=== PATIENT | male | born 1950 | race Caucasian/White ===

== ENCOUNTER 2020-07-15 07:15 | Outpatient (REF) | payer OTHER, SELFPAY ==
[2020-07-15 08:07] LABS: COVID-19 Test Negative (Negative)
== END 2020-07-15 07:16 | disposition home or self-care (01) ==
LOC: HO.LAB 07:15
PROVIDERS: Visit Provider Internal Medicine
DX: Z20.828 Contact with and (suspected) exposure to other viral communicable diseases (principal)
CPT/HCPCS: 87635

== ENCOUNTER 2020-07-31 12:35 | Outpatient (REF) | payer OTHER, SELFPAY ==
[2020-07-31 13:03] LABS: COVID-19 Test Negative (Negative)
== END 2020-07-31 12:36 | disposition home or self-care (01) ==
LOC: HO.EMPCOV 12:35
PROVIDERS: Visit Provider Internal Medicine
DX: Z20.828 Contact with and (suspected) exposure to other viral communicable diseases (principal)
CPT/HCPCS: 87635; C9803

== ENCOUNTER 2020-09-15 16:12 | Outpatient (REF) | payer OTHER, SELFPAY ==
[2020-09-15 16:58] LABS: COVID-19 Test Negative (Negative)
== END 2020-09-15 16:13 | disposition home or self-care (01) ==
LOC: HO.EMPCOV 16:12
PROVIDERS: Visit Provider Internal Medicine
DX: Z20.828 Contact with and (suspected) exposure to other viral communicable diseases (principal)
CPT/HCPCS: 87635

== ENCOUNTER 2020-10-05 06:06 | Outpatient (REF) | payer OTHER, SELFPAY ==
[2020-10-05 08:10] LABS: Hematocrit 43.6 % (42-52); Hemoglobin 14.9 g/dl (14.0-18.0); Mean Corpuscular HGB Conc 34.2 g/dl (31.0-36.0); Mean Corpuscular Hemoglobin 32.5 pg (27.0-33.0); Mean Platelet Volume 10.9 fL (9.4-12.4); Platelet Count 179 X10*3/uL (160-400); Red Blood Count 4.59 X10*6/uL (4.60-5.80); Red Cell Distribution Width 12.3 % (11.0-16.0); White Blood Count 4.9 X10*3/uL (4.8-10.8)
[2020-10-05 08:53] LABS: Alanine Aminotransferase 41 U/L (0-40); Albumin Level 4.5 g/dL (3.5-5.0); Alkaline Phosphatase 58 U/L (39-117); Anion Gap 15 (12-20); Aspartate Amino Transferase 79 U/L (5-37); Bilirubin Direct 0.2 mg/dL (0.0-0.5); Bilirubin Total 0.5 mg/dL (0.0-1.0); Blood Urea Nitrogen 17 mg/dL (9-16); Calcium 9.3 mg/dL (8.4-10.2); Carbon Dioxide 25 mmol/L (22-29); Chloride 102 mmol/L (96-108); Cholesterol 254 mg/dL; Estimated Glomerular Filt Rate > 60; Glucose Random 94 mg/dL (60-115); HDL Cholesterol 64 mg/dL; LDL Cholesterol Calculated 165 mg/dl; Magnesium 2.2 mg/dL (1.6-2.6); Potassium 4.3 mmol/l (3.3-5.1); Sodium 138 mmol/L (135-145); Total Protein 7.2 g/dL (6.5-8.0); Triglycerides 129 mg/dL
[2020-10-05 08:58] LABS: Thyroid Stimulating Hormone 3.35 uIU/mL (0.32-4.0)
[2020-10-08 23:32] LABS: TS Negative Control Passed; TS Panel A 0; TS Panel B 0; TS Positive Control Passed; TSpotTB Negative (SeeBelow)
[2020-10-09 17:58] LABS: Vitamin D 25-OH, D2 <4 ng/mL; Vitamin D 25-OH, D3 16 ng/mL; Vitamin D 25-OH, Total 16 ng/mL (30-100)
== END 2020-10-05 06:07 | disposition home or self-care (01) ==
LOC: HO.LAB 06:06
PROVIDERS: Emergency Medicine Emergency Medical Services; Visit Provider Internal Medicine
DX: R53.83 Other fatigue (principal)
CPT/HCPCS: 36415; 80048; 80061; 80076; 82306; 83735; 84443; 85027; 86140; 86481

== ENCOUNTER 2020-10-24 06:03 | Outpatient (REF) | payer OTHER, SELFPAY ==
[2020-10-24 07:20] LABS: Hematocrit 43.9 % (42-52); Hemoglobin 14.9 g/dl (14.0-18.0); Mean Corpuscular HGB Conc 33.9 g/dl (31.0-36.0); Mean Corpuscular Hemoglobin 32.5 pg (27.0-33.0); Mean Corpuscular Volume 95.9 fL (80-98); Platelet Count 164 X10*3/uL (160-400); Red Blood Count 4.58 X10*6/uL (4.60-5.80); Red Cell Distribution Width 12.3 % (11.0-16.0)
[2020-10-24 07:47] LABS: Alanine Aminotransferase 28 U/L (0-40); Albumin Level 4.5 g/dL (3.5-5.0); Alkaline Phosphatase 56 U/L (39-117); Anion Gap 15 (12-20); Aspartate Amino Transferase 31 U/L (5-37); Bilirubin Direct 0.2 mg/dL (0.0-0.5); Bilirubin Total 0.5 mg/dL (0.0-1.0); Blood Urea Nitrogen 17 mg/dL (9-16); Calcium 9.3 mg/dL (8.4-10.2); Carbon Dioxide 26 mmol/L (22-29); Chloride 103 mmol/L (96-108); Cholesterol 229 mg/dL; Estimated Glomerular Filt Rate > 60; Glucose Random 98 mg/dL (60-115); HDL Cholesterol 66 mg/dL; LDL Cholesterol Calculated 137 mg/dl; Potassium 4.7 mmol/L (3.3-5.1); Sodium 139 mmol/L (135-145); Total Protein 7.1 g/dL (6.5-8.0); Triglycerides 132 mg/dL
[2020-10-28 20:57] LABS: Vitamin D 25-OH, D2 <4 ng/mL; Vitamin D 25-OH, D3 22 ng/mL; Vitamin D 25-OH, Total 22 ng/mL (30-100)
== END 2020-10-24 06:04 | disposition home or self-care (01) ==
LOC: HO.LAB 06:03
PROVIDERS: Visit Provider Internal Medicine
DX: I71.4 Abdominal aortic aneurysm, without rupture (principal); I71.2 Thoracic aortic aneurysm, without rupture; R74.8 Abnormal levels of other serum enzymes
CPT/HCPCS: 36415; 80048; 80061; 80076; 82306; 85027

== ENCOUNTER 2020-10-27 09:40 | Outpatient (REF) | payer OTHER, SELFPAY ==
--- NOTE | ~2020-10-27 | CT_ITS ---
EXAMINATION: CT ABDOMEN AND PELVIS WITHOUT CONTRAST CLINICAL INFORMATION: Abdominal aortic aneurysm. COMPARISON: Previous chest CT December 2019 TECHNIQUE: Multidetector volumetric imaging was performed from the superior aspect of the liver through the pubic symphysis. Sagittal and coronal reformatted images were obtained on the technologist's workstation. This CT examination was performed using dose optimization techniques as appropriate, variously including the following: *Automated exposure control *Adjustment of mA and/or kV according to patient size (this includes techniques or standardized protocols for targeted exams where dose is matched to indication/reason for exam; i.e. extremities or head) *Use of iterative reconstruction technique DLP: 571 mGy-cm FINDINGS: LUNG BASES: There is a peripheral or subpleural 9 mm right lower lobe nodule axial image 1 series 4. This is only partially visualized. This has small focus of calcification and feeding vessels and is again suggestive of AVM or varix. There is a 2 mm left lower lobe nodule axial image 34 series 4. There is a small right posterior diaphragmatic hernia containing fat. Chest findings are stable from chest CT December 2019. LIVER, GALLBLADDER, AND BILIARY TREE: The liver is normal in size, shape, and attenuation. No focal hepatic lesion or biliary ductal dilatation is present. The gallbladder has been removed. PANCREAS: Unremarkable. SPLEEN: Unremarkable. ADRENAL GLANDS: Unremarkable. KIDNEYS AND URETERS: There are small bilateral nonobstructing renal stones. BLADDER: Unremarkable. GASTROINTESTINAL TRACT: There is mild diverticulosis of the colon. Small and large bowel is otherwise unremarkable. The stomach is unremarkable. ABDOMINAL WALL: There is a small umbilical hernia containing fat. LYMPH NODES: Normal. VASCULAR: No aneurysm is seen. The descending thoracic aorta is tortuous. The bilateral common and external iliac arteries are slightly ectatic, both measuring 1.5 cm. PELVIC VISCERA: The prostate gland is slightly enlarged measuring 4 x 5.5 cm. OSSEOUS STRUCTURES: There are degenerative changes of the spine and hip joints. There may be a transitional vertebral body segment. There are degenerative changes at the lower lumbosacral spine. CT/CT abdomen pelvis wo con IMPRESSION: No aneurysm is seen. Tortuous descending thoracic aorta. Ectasia of the common and external iliac arteries. Mild diverticulosis of the colon. Small nonobstructing bilateral renal stones. Slightly enlarged prostate gland. Stable 9 mm right lower lobe pulmonary nodule probably representing an AVM or varix.
== END 2020-10-27 09:41 | disposition home or self-care (01) ==
LOC: HO.CT 09:40
PROVIDERS: Visit Provider Internal Medicine
DX: I71.4 Abdominal aortic aneurysm, without rupture (principal); I71.2 Thoracic aortic aneurysm, without rupture; R74.8 Abnormal levels of other serum enzymes
CPT/HCPCS: 74176

== ENCOUNTER 2021-01-03 07:16 | Day surgery (SDC) | payer OTHER, SELFPAY ==
[2020-12-27 12:24] VITALS: BMI 26.6
[2021-01-03 07:59] VITALS: BP 122/75; PULSE 58; RESP 16; TEMP 36.2; O2SAT 99
[2021-01-03] MEDS: Lactated Ringers 1,000 ML 50 ML IV (08:18)
--- NOTE | 2021-01-03 08:39 | P.CONAN_ITS ---
[facility] Active Problems Active Problems: All Active Problems (Updated 12/27/20 @ 12:19 by Susy juan) Generalized anxiety disorder (Acute) Fatigue (Acute) Screening for colon cancer (Acute) Thoracic aortic aneurysm (Acute) Elevated liver enzymes (Acute) Past Medical History Medical History Bilateral femoral hernia Elevated liver enzymes History of kidney stones Hypertension Family History Family History Mother No problems noted. Father No problems noted. Surgical History Surgical History History of esophagogastroduodenoscopy (EGD) Hx of bilateral inguinal hernia repair Hx of cholecystectomy Hx of colonoscopy Previous back surgery Social History Social History Are you a primary transitions rn care coordinator to a significant other at home: No Do you presently have visiting nurse or other home services: No Alcohol intake: current Alcohol intake frequency: a few times a week Smoking Status: Never smoker Use of substances other than those prescribed or required for medical reasons: No Have you been hit, kicked, punched, or otherwise hurt by someone within the past year? If so, by whom?: No Advance Directives: No Advance Directives Information Provided: No Advance Directives on File: No Recently lost weight without trying: No Meds Allergies Allergy/AdvReac Type Severity Reaction Status Date / Time Quinolones [QUINOLONES] Allergy Unknown TENDONITIS Verified 12/27/20 12:19 Active Medications: Current Medications Generic Name Dose Route Start Last Admin Trade Name Freq PRN Reason Stop Dose Admin Lactated Ringer's 1,000 mls @ 50 mls/hr 01/03/21 07:15 01/03/21 08:18 Lr IV 50 mls/hr .Q20H JUANITA Administration Sodium Biphosphate/Sodium Phosphate 133 ml 01/03/21 07:44 Sodium Phosphate,Hitchcock-Dibasic 133 Ml Enema [place] ONCE PRN Poor Colonoscopy Prep Results Home Medications Medication Instructions Recorded Confirmed Last Taken Type aspirin 81 mg tablet,delayed 81 mg PO DAILY 09/19/20 01/03/21 12/30/20 History release losartan 25 mg tablet 25 mg PO DAILY 09/19/20 12/27/20 Unknown History Exam Exam Date and Time: January 03, 2021 0839 Height,Weight and Vital Signs: Height 5 ft 7 in Weight 77.111 kg Last Vital Signs Temp 97.1 F 01/03/21 07:59 Pulse 58 01/03/21 07:59 Resp 16 01/03/21 07:59 BP 122/75 01/03/21 07:59 Pulse Ox 99 01/03/21 07:59 Airway Mallampati Class: I TM Dist: >3cm Neck ROM: Full Heart: ok Lungs: ok Assessment and Plan Final Anesthetic Review NPO: Yes ASA Class: II Final Preanesthetic Review: No Changes in Pt Med Stat, Meds/Allgs Chart Reviewed, Consent Obtained/Reviewed and Anes Risks/Benef Reviewed Patient Risk: Intermediate Procedure Risk: Low Anesthetic Plan Anesthetic Plan: MAC: and Agree w/ Assess. and Plan Disposition: Standard PACU
[2021-01-03 09:37] VITALS: BP 107/63; PULSE 59; RESP 18; TEMP 36.1; O2SAT 96
--- NOTE | 2021-01-03 09:37 | PM.OP ---
Brief Operative Note Date of Service: 01/03/21 Pre-op diagnosis: Screening Post-op diagnosis: other (Diverticulosis. Internal and External hemorrhoids) Procedure: Colonoscopy to the cecum and TI Surgeon: Frederic Steven Anesthesia: MAC Estimated blood loss (mL): 0 Pathology: none sent Condition: stable Disposition: PACU
[2021-01-03 09:52] VITALS: BP 100/67; PULSE 54; RESP 18; TEMP 36.1; O2SAT 98
--- NOTE | 2021-01-03 10:14 | OP_ITS ---
SURGEON: Frederic Steven MD INDICATIONS: The patient presents for followup of personal history of tubular adenoma of the colon, family history of colon cancer, and colorectal cancer screening. Full consent was obtained from him for this, including risks of bleeding and perforation. PREOPERATIVE DIAGNOSIS: POSTOPERATIVE DIAGNOSIS: PROCEDURE PERFORMED: Colonoscopy to the cecum and terminal ileum. ESTIMATED BLOOD LOSS: COMPLICATIONS: ANESTHESIA: Medication used, monitored anesthesia care. ASSISTANTS: SPECIMENS: PREOPERATIVE DIAGNOSES: Personal history of tubular adenoma of the colon, family history of colon cancer, and colorectal cancer screening. POSTOPERATIVE DIAGNOSES: Personal history of tubular adenoma of the colon, family history of colon cancer, and colorectal cancer screening, sigmoid diverticulosis, internal and external hemorrhoids. DESCRIPTION OF PROCEDURE: The patient was placed in the left lateral decubitus position. The digital rectal exam revealed external hemorrhoids. The Olympus video pediatric colonoscope was entered into the rectum and advanced to the cecum with the assistance of abdominal wall pressure. Once in the cecum, I did identify normal-appearing cecal pouch with appendiceal orifice and a normal-appearing ileocecal valve. The terminal ileum was cannulated and appeared normal. The scope was withdrawn back in the colon. The entire cecum and ileocecal valve appeared normal. The scope was slowly withdrawn assessing all mucosal surfaces carefully. Preparation was excellent. I did not visualize any sign of polyps, colitis, nor angiodysplasia. There was a mild amount of sigmoid diverticulosis. In the rectum, scope was retroflexed visualizing small internal hemorrhoids, but no other pathology. The rectal mucosa appeared normal. The scope was straightened out and withdrawn from the patient. He tolerated the procedure well and was returned to the recovery area in stable condition. IMPRESSION: 1. Sigmoid diverticulosis. 2. Internal and external hemorrhoids. PLAN: Given his previous history, I would recommend a followup colonoscopy in 5 years for further screening. He will otherwise see me on a p.r.n. basis. He was advised that he could resume his aspirin today. MD GONZALO Luu/KLARISSA / [id number]
== END 2021-01-03 10:12 | disposition home or self-care (01) ==
PROVIDERS: PCP Internal Medicine; Visit Provider Internal Medicine
PROC: 0DJD8ZZ Inspection of Lower Intestinal Tract, Via Natural or Artificial Opening Endoscopic (ICD-10-PCS; CPT 45378; principal; 2021-01-03 08:20)
DX: Z12.11 Encounter for screening for malignant neoplasm of colon (principal); Z86.010 Personal history of colon polyps; Z80.0 Family history of malignant neoplasm of digestive organs; K57.30 Diverticulosis of large intestine without perforation or abscess without bleeding; K64.8 Other hemorrhoids; K64.4 Residual hemorrhoidal skin tags; I10 Essential (primary) hypertension; Z79.899 Other long term (current) drug therapy; Z79.82 Long term (current) use of aspirin; Z90.49 Acquired absence of other specified parts of digestive tract; Z88.8 Allergy status to other drugs, medicaments and biological substances
CPT/HCPCS: 45378; J3010

== ENCOUNTER 2022-01-10 17:21 | Emergency (ER) | payer OTHER, SELFPAY ==
--- NOTE | 2022-01-10 | ECG_ITS ---
Test Reason : REPEAT EKG Blood Pressure : / mmHG Vent. Rate : 062 BPM Atrial Rate : 062 BPM P-R Int : 214 ms QRS Dur : 090 ms QT Int : 420 ms P-R-T Axes : 046 -23 029 degrees QTc Int : 426 ms Sinus rhythm with marked sinus arrhythmia with 1st degree A-V block Minimal voltage criteria for LVH, may be normal variant ( R in aVL ) Borderline ECG When compared with ECG of 10-JAN-2022 17:26, No significant change was found Referred By: Marcel Zurita Electronically Signed By:KAITLIN SNYDER
--- NOTE | 2022-01-10 | ECG_ITS ---
Test Reason : POSTERIOR EKG Blood Pressure : / mmHG Vent. Rate : 060 BPM Atrial Rate : 060 BPM P-R Int : 196 ms QRS Dur : 092 ms QT Int : 430 ms P-R-T Axes : 043 -16 040 degrees QTc Int : 430 ms Normal sinus rhythm with sinus arrhythmia Normal ECG When compared with ECG of 10-JAN-2022 17:56, Nonspecific T wave abnormality, worse in Lateral leads Referred By: Marcel Zurita Electronically Signed By:KAITLIN SNYDER
--- NOTE | ~2022-01-10 | CT_ITS ---
EXAMINATION: CT ANGIOGRAM CHEST CLINICAL INFORMATION: Chest pain. History of thoracic aneurysm. COMPARISON: Chest x-ray earlier today, chest CT 01/09/[address] abdomen pelvis 10/27/2020 TECHNIQUE: Multiple axial images were obtained through the chest after the administration of 70 mL of Omnipaque 350 intravenous contrast. Reformatted coronal, sagittal and MIP imaging was provided for interpretation. This CT examination was performed using dose optimization techniques as appropriate, variously including the following: *Automated exposure control *Adjustment of mA and/or kV according to patient size (this includes techniques or standardized protocols for targeted exams where dose is matched to indication/reason for exam; i.e. extremities or head) *Use of iterative reconstruction technique DLP: 364 mGy-cm FINDINGS: The heart is normal in size. Ascending aorta at the upper limits of normal in size measuring 3.9 cm in maximum dimension. The aortic arch is normal in caliber measuring 2.8 cm. The descending thoracic aorta is mildly prominent measuring 3.1 cm. No evidence of dissection. There is a normal three-vessel takeoff of the aortic arch. Visualized proximal portions of the bilateral common carotid, vertebral and subclavian arteries are patent. There is some noncalcified disease at the takeoff of the left common carotid artery. Visualized portions of the abdominal aorta are normal in caliber. The celiac, superior and inferior mesenteric arteries are patent at their takeoffs. Bilateral renal arteries are patent. Opacified portions of the pulmonary arteries are unremarkable. There is no pericardial effusion. A few mildly prominent but not pathologically enlarged mediastinal lymph nodes are noted. No enlarged axillary lymph nodes. Small Bochdalek hernia of the posterior right lung base. Central airways are patent. Lungs are well aerated. There is no lobar consolidation. No pleural effusion or pneumothorax. Stable irregularly-shaped pleural density measuring approximately 1 cm within the medial right lower lobe which contains a central calcification, nonspecific but possibly an AVM (image 351/652, series 6).. A few sub-5 mm pulmonary nodules are stable, for example a 4 mm right lower lobe pulmonary nodule (image 370) and a 3 mm right upper lobe nodule (image 124). No new suspicious pulmonary nodules visualized. Visualized portions of the upper abdomen are grossly unremarkable. Mild diffuse degenerative changes of the spine. CT/CT angio chest aorta IMPRESSION: -No thoracic aorta dissection. No aneurysm. -Stable irregularly-shaped pleural density measuring approximately 1 cm within the medial right lower lobe which contains a central calcification, nonspecific but possibly an AVM. -Other sub-5 mm pulmonary nodules are stable. No new suspicious pulmonary nodules visualized. Fleischner guidelines were followed.
--- NOTE | ~2022-01-10 | XR_ITS ---
EXAMINATION: XR CHEST CLINICAL INFORMATION: Chest pain COMPARISON: Chest CT and chest x-ray 01/09/2020 TECHNIQUE: Frontal view of the chest was obtained. FINDINGS: Cardiac silhouette is normal in size. The lungs are well aerated. Subtle linear opacity in the right midlung is nonspecific but most suggestive of atelectasis. There is no lobar consolidation. No pleural effusion or pneumothorax. No gross osseous abnormality. XR/XR chest 1V IMPRESSION: No acute pulmonary pathology.
[2022-01-10 17:22] VITALS: BP 189/103; PULSE 68; RESP 20; TEMP 36.5; O2SAT 98
--- NOTE | 2022-01-10 17:25 | ECG_ITS ---
Test Reason : CP Blood Pressure : / mmHG Vent. Rate : 068 BPM Atrial Rate : 068 BPM P-R Int : 194 ms QRS Dur : 090 ms QT Int : 408 ms P-R-T Axes : 052 -17 040 degrees QTc Int : 433 ms Normal sinus rhythm with sinus arrhythmia Normal ECG No previous ECGs available Referred By: Marcel Zurita Electronically Signed By:KAITLIN SNYDER
[2022-01-10] MEDS: Nitroglycerin 0.4 MG TAB.SUBL SUBLINGUAL (17:32)
[2022-01-10] MEDS: Aspirin 81 MG TAB.CHEW 162 MG PO (17:36)
[2022-01-10 17:39] VITALS: BP 146/85
[2022-01-10] MEDS: Heparin Sodium,Porcine 5,000 UNIT/ML VIAL 5000 UNIT IVPUSH (17:40)
--- NOTE | 2022-01-10 17:40 | ED_ITS ---
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, anxiety disorder, 4.1 cm thoracic aortic aneurysm recently had a tick bite 1 week ago comes here for L chest pain started around 08:00 feel diffuse on the left side dull pain radiating to bilateral arms more so on the left side also had some pain in the interscapular area prior to arrival, no shortness of breath no diaphoresis no nausea or vomiting blood pressure on arrival was once 189/103 repeat blood pressure 146/85 pulse rate 69 feels patient never had similar pain in the past Related Data Home Medications Medication Instructions Recorded Confirmed aspirin 81 mg tablet,delayed 81 mg PO DAILY 09/19/20 01/03/21 release losartan 25 mg tablet 25 mg PO DAILY 09/19/20 01/03/21 Previous Rx's Medication Instructions Recorded cholecalciferol (vitamin D3) 1,250 1,250 mcg PO QWEEK #14 cap 11/04/20 mcg (50,000 unit) capsule alprazolam 0.5 mg tablet 0.5 mg PO BEDTIME PRN #60 tab 05/17/21 Allergies Allergy/AdvReac Type Severity Reaction Status Date / Time Quinolones [QUINOLONES] Allergy Unknown TENDONITIS Verified 12/27/20 12:19 Review of Systems Review of Systems: Yes all other systems are reviewed and are negative [facility] Past Medical History Medical History (Updated 01/11/22 @ 00:02 by Moses Leo) Bilateral femoral hernia Elevated liver enzymes FH: cholecystectomy 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 Father No problems noted. Social History Social History Are you a primary pediatric care coordinator to a significant other at home: No Do you presently have visiting nurse or other home services: No Alcohol intake: current Alcohol intake frequency: 3 or more drinks per day Patient Tobacco Use Status: Never used Tobacco Use of substances other than those prescribed or required for medical reasons: No Advance Directives: No Advance Directives Information Provided: No Physical Exam Vital Signs: Vital Signs: Last Vital Signs Temp 97.7 F 01/10/22 17:22 Pulse 58 01/10/22 18:00 Resp 14 01/10/22 18:00 BP 166/83 H 01/10/22 18:00 Pulse Ox 98 01/10/22 17:55 BMI result Body Mass Index 27.6 Appearance: Alert. Oriented X3. No acute distress. Eyes: No pallor or icterus ENT: Pharynx normal. Oral Mucosa moist Neck: Normal inspection. Neck supple. CVS: Normal heart rate and rhythm. Pulses normal. Respiratory: No respiratory distress. Equal air entry bilateral, no wheezing/rales/rhonchi Abdomen: Soft and nontender. Bowel sounds are present, no mass palpable, no CVA tenderness Skin: Skin warm and dry. Normal skin color. Normal skin turgor. Extremities: No lower extremity edema. No calf tenderness Neuro: Oriented X 3. No motor deficit. Course Reevaluation(s) Reevaluation #1: Case discussed Dr. Herrera director automotive advised to run the labs, CT chest and plan to transfer to [facility] Time: 17:34 Reevaluation #2: Case discussed with Dr. Pereyra bag machine operator helper except with patient in [facility] also and will be attending patient has sensitive troponin 5.2 repeat EKG no acute ischemic changes patient started on nitroglycerin drip blood pressure 166/83 pulse rate 60 patient received 5000 units of heparin bolus 2 baby aspirin awaiting for CTA chest Time: 18:18 Reevaluation #3: CTA chest done no obvious dissection noticed, radiologist report pending, patient ready to be transferred Time: 18:38 MDM - Chest Pain MDM Narrative Medical decision making narrative: Patient with chest pain with risk factors of hypertension and age EKG without any ischemic changes pain is typical of cardiac origin initial troponin is-5.2 will do a CTA chest to rule out dissection Lab Data Attestation: I reviewed the patient's lab results. Result diagrams: 01/10/22 17:33 01/10/22 Unknown Labs: Lab Results 01/10/22 01/10/22 01/10/22 Range/Units 17:33 17:33 17:33 WBC 3.0 L (4.8-10.8) X10*3/uL RBC 4.65 (4.60-5.80) X10*6/uL Hgb 15.0 (14.0-18.0) g/dl Hct 43.1 (42.0-52.0) % MCV 92.7 (80.0-98.0) fL MCH 32.3 (27.0-33.0) pg MCHC 34.8 (31.0-36.0) g/dl RDW 12.4 (11.0-16.0) % Plt Count 91 L (160-400) X10*3/uL MPV 9.8 (9.4-12.4) fL Immature Gran % (Auto) 0.3 (0.0-0.4) % Neut % (Auto) 59.2 (45-73) % Lymph % (Auto) 28.6 (20-40) % [place] % (Auto) 10.2 (2-11) % Eos % (Auto) 0.7 (0-4) % Baso % (Auto) 1.0 (0-2) % Lymph # (Auto) 0.9 L (1.2-4.9) X10*3/uL [place] # (Auto) 0.3 (0.1-1.2) X10*3/uL Eos # (Auto) 0.0 (0.0-0.4) X10*3/uL Baso # (Auto) 0.0 (0.0-0.2) X10*3/uL Abs Immat Gran (auto) 0.01 (0.00-0.03) X10*3/uL Absolute Neuts (auto) 1.8 L (2.0-8.3) x10*3/uL Absolute Nucleated RBC 0.000 (0.0-0.012) X10*3/uL Nucleated RBC % (auto) 0.0 (0.0-0.2) /100WBC Smear Tech's Comments VERIFIED PT 12.1 (9.9-13.0) SEC INR 1.1 (0.9-1.1) APTT 32.2 (24.1-38.0) SEC Sodium Potassium Chloride Carbon Dioxide Anion Gap BUN Creatinine Estim Creat Clear Calc Estimated GFR Random Glucose Calcium Total Bilirubin AST ALT Alkaline Phosphatase Troponin I High Sens 5.2 (<3.5-35.0) ng/L Total Protein Albumin Lipase COVID-19 ([facility]CITA) (Negative) COVID-19 Clin Com 01/10/22 01/10/22 01/10/22 Range/Units 17:34 18:06 Unknown WBC (4.8-10.8) X10*3/uL RBC (4.60-5.80) X10*6/uL Hgb (14.0-18.0) g/dl Hct (42.0-52.0) % MCV (80.0-98.0) fL MCH (27.0-33.0) pg MCHC (31.0-36.0) g/dl RDW (11.0-16.0) % Plt Count (160-400) X10*3/uL MPV (9.4-12.4) fL Immature Gran % (Auto) (0.0-0.4) % Neut % (Auto) (45-73) % Lymph % (Auto) (20-40) % [place] % (Auto) (2-11) % Eos % (Auto) (0-4) % Baso % (Auto) (0-2) % Lymph # (Auto) (1.2-4.9) X10*3/uL [place] # (Auto) (0.1-1.2) X10*3/uL Eos # (Auto) (0.0-0.4) X10*3/uL Baso # (Auto) (0.0-0.2) X10*3/uL Abs Immat Gran (auto) (0.00-0.03) X10*3/uL Absolute Neuts (auto) (2.0-8.3) x10*3/uL Absolute Nucleated RBC (0.0-0.012) X10*3/uL Nucleated RBC % (auto) (0.0-0.2) /100WBC Smear Tech's Comments PT (9.9-13.0) SEC INR (0.9-1.1) APTT (24.1-38.0) SEC Sodium Cancelled Potassium Cancelled Chloride Cancelled Carbon Dioxide Cancelled Anion Gap Cancelled BUN Cancelled Creatinine Cancelled Estim Creat Clear Calc Cancelled Estimated GFR Cancelled Random Glucose Cancelled Calcium Cancelled Total Bilirubin Cancelled AST Cancelled ALT Cancelled Alkaline Phosphatase Cancelled Troponin I High Sens (<3.5-35.0) ng/L Total Protein Cancelled Albumin Cancelled Lipase Cancelled Cancelled COVID-19 ([facility]A) Negative (Negative) COVID-19 Clin Com See Note ECG Data ECG #1: Attestation: I personally reviewed and interpreted this ECG as follows: Interpretation: Normal sinus rhythm heart rate 68 beats per minute normal interval normal axis few PACs no acute ST wave changes impression no acute ischemia Discharge Plan Discharge Clinical Impression: Non-ST elevation (NSTEMI) myocardial infarction Patient Disposition: Xfer Acute Care Hospital Transfer Details: To [facility] unit Dr. Pereyra Prescriptions: No Action cholecalciferol (vitamin D3) 1,250 mcg (50,000 unit) capsule 1,250 mcg PO QWEEK Qty: 14 1RF alprazolam 0.5 mg tablet 0.5 mg PO BEDTIME PRN (Reason: sleep) Qty: 60 0RF losartan 25 mg tablet 25 mg PO DAILY 0RF aspirin 81 mg tablet,delayed release (DR/EC) 81 mg PO DAILY 0RF Interventions: Acute Care Transfer Worksheet (ED) Last Done: 01/10/22 18:59 Discharge Date/Time: 01/10/22 18:55
[2022-01-10] MEDS: Nitroglycerin 2 % Oint 1 GM Packet 1 INCH TRANSDERMA (17:44)
[2022-01-10 17:47] LABS: Eosinophils Percent Auto 0.7 % (0-4); Hematocrit 43.1 % (42.0-52.0); Imm Gran Abs Auto 0.01 X10*3/uL (0.00-0.03); Imm Gran Pct Auto 0.3 % (0.0-0.4); Lymphocytes Absolute Auto 0.9 X10*3/uL (1.2-4.9); Lymphocytes Percent Auto 28.6 % (20-40); Mean Corpuscular HGB Conc 34.8 g/dl (31.0-36.0); Mean Corpuscular Hemoglobin 32.3 pg (27.0-33.0); Mean Corpuscular Volume 92.7 fL (80.0-98.0); Monocytes Absolute Auto 0.3 X10*3/uL (0.1-1.2); Monocytes Percent Auto 10.2 % (2-11); Neutrophils Absolute Auto 1.8 x10*3/uL (2.0-8.3); Neutrophils Percent Auto 59.2 % (45-73); Red Blood Count 4.65 X10*6/uL (4.60-5.80); Red Cell Distribution Width 12.4 % (11.0-16.0)
[2022-01-10 17:48] VITALS: BMI 27.6
[2022-01-10 17:51] LABS: INTERNATIONAL NORM RATIO 1.1 (0.9-1.1); Prothrombin Time 12.1 SEC (9.9-13.0)
[2022-01-10 17:53] LABS: MANUAL DIFF FLAG SCAN
[2022-01-10 17:54] LABS: Partial Thromboplastin Time 32.2 SEC (24.1-38.0)
[2022-01-10 17:55] VITALS: BP 127/106; PULSE 57; RESP 16; O2SAT 98
[2022-01-10 17:58] LABS: COVID-19 Test Negative (Negative); IDNOW Serial# 16C4AD1C
[2022-01-10 18:00] VITALS: BP 166/83; PULSE 58; RESP 14
[2022-01-10 18:01] LABS: Troponin-I High Sensitivity 5.2 ng/L (<3.5-35.0)
[2022-01-10] MEDS: Morphine Sulfate 2 MG/ML CARTRIDGE IVPUSH (18:04)
[2022-01-10] MEDS: Nitroglycerin/D5W 100 MG/250 ML INFUS..BTL IVCONT (18:17)
--- NOTE | 2022-01-10 18:23 | PC.NURSE ---
pt currently refusing brilinta as well as the zofran.
--- NOTE | 2022-01-10 18:24 | PC.NURSE ---
nitro paste was removed, pt nitro drip started
--- NOTE | 2022-01-10 18:26 | PC.NURSE ---
patient a&ox3, iv inserted, labs drawn, ekgs performed, pt medicated per order, monitor worker intact, vitals stable, call bolton within reach, will continue to monitor.
[2022-01-10 18:32] LABS: Mean Platelet Volume 9.8 fL (9.4-12.4)
[2022-01-10 18:33] LABS: Platelet Count 91 X10*3/uL (160-400); SLIDE REVIEW VERIFIED
[2022-01-10] MEDS: iohexoL 350 MG/ML 100 ML INFUS..BTL IV (18:43)
--- NOTE | 2022-01-10 18:52 | PC.NURSE ---
pt went from ct directly to [facility] stretcher for transport to [facility], was at bedside upon his departure
--- NOTE | 2022-01-10 18:59 | PC.NURSE ---
report called to [facility]
== END 2022-01-10 18:55 | disposition short-term general hospital (02) ==
PROVIDERS: Emergency Provider Internal Medicine
DX: I21.4 Non-ST elevation (NSTEMI) myocardial infarction (principal); I10 Essential (primary) hypertension; Z20.822 Contact with and (suspected) exposure to COVID-19
CPT/HCPCS: 71045; 71275; 84484; 85025; 85610; 85730; 87635; 93005; 96365; 96375; 99285; J2270; Q9967

== ENCOUNTER 2022-01-17 12:33 | Outpatient (REF) | payer OTHER, SELFPAY ==
[2022-01-17 12:44] LABS: MANUAL DIFF FLAG NO
[2022-01-17 13:03] LABS: Basophils Absolute Auto 0.1 X10*3/uL (0.0-0.2); Basophils Percent Auto 1.3 % (0-2); Eosinophils Absolute Auto 0.1 X10*3/uL (0.0-0.4); Eosinophils Percent Auto 1.8 % (0-4); Hematocrit 38.7 % (42.0-52.0); Hemoglobin 13.2 g/dl (14.0-18.0); Imm Gran Pct Auto 1.7 % (0.0-0.4); Lymphocytes Absolute Auto 1.7 X10*3/uL (1.2-4.9); Lymphocytes Percent Auto 28.5 % (20-40); Mean Corpuscular HGB Conc 34.1 g/dl (31.0-36.0); Mean Corpuscular Hemoglobin 32.4 pg (27.0-33.0); Mean Corpuscular Volume 95.1 fL (80.0-98.0); Mean Platelet Volume 10.4 fL (9.4-12.4); Monocytes Absolute Auto 0.4 X10*3/uL (0.1-1.2); Monocytes Percent Auto 6.9 % (2-11); Neutrophils Absolute Auto 3.6 x10*3/uL (2.0-8.3); Neutrophils Percent Auto 59.8 % (45-73); Platelet Count 192 X10*3/uL (160-400); Red Blood Count 4.07 X10*6/uL (4.60-5.80); Red Cell Distribution Width 12.4 % (11.0-16.0)
[2022-01-17 13:43] LABS: Free T4 (Free Thyroxine) 0.92 ng/dL (0.71-1.85); Thyroid Stimulating Hormone 5.25 uIU/mL (0.32-4.0)
[2022-01-19 01:52] LABS: Triiodothyronine T3 Free 2.6 pg/mL (2.3-4.2)
== END 2022-01-17 12:34 | disposition home or self-care (01) ==
LOC: HO.LAB 12:33
PROVIDERS: PCP Internal Medicine; Visit Provider Nurse Practitioner Family
DX: R53.83 Other fatigue (principal); Z13.29 Encounter for screening for other suspected endocrine disorder
CPT/HCPCS: 36415; 84439; 84443; 84481; 85025

== ENCOUNTER 2022-01-24 06:21 | Day surgery (SDC) | payer OTHER, SELFPAY ==
--- NOTE | 2022-01-23 10:10 | P.CONAN_ITS ---
Documented by User: Moni Brannon NP 01/23/22 10:17 HPI - Anesthesia Eval Consult details Narrative: 71yo M for Upper Endoscopy Pt was tx'd from [facility] to [facility] 01/10/22 for chest pain, htn. Per hospital discharge note patient initially presented with chest pain that is pressure- like and pleuritic with radiation to the back.? Initially a 8-9/10 that was not responding to nitroglycerin or morphine.? Eventually relieved by tramadol.? Patient has remained chest pain free since.? Troponin has stayed negative throughout hospital stay.? EKG with no ischemic findings.? Stress test was unremarkable with no skin rosy findings.? Echocardiogram revealed LVEF of 60-65% with no wall motion abnormalities and borderline pulmonary hypertension with PA pressure of 35-40 mmHg.? Given no response to nitro morphine, response to tramadol, and no objective findings on cardiac enzymes or EKG, normal stress test etiology behind patient's chest pain highly likely to be noncardiac in origin.? As such, will discharge patient as patient at this time merits no further cardiac workup. 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 Father No problems noted. Surgical History Surgical History History of esophagogastroduodenoscopy (EGD) Hx of bilateral inguinal hernia repair Hx of cholecystectomy Hx of colonoscopy Previous back surgery Social History Social History Housing: House Are you a primary medical care evaluation specialist to a significant other at home: No Do you presently have visiting nurse or other home services: No Alcohol intake: current Alcohol intake frequency: 3 or more drinks per day Patient Tobacco Use Status: Never used Tobacco e-Cigarette/Vaping Use: Never Used Use of substances other than those prescribed or required for medical reasons: No Advance Directives: No Advance Directives Information Provided: Yes Recently lost weight without trying: No service: No 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 occupational status: 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 occupational exposures/hazards: Yes Cognitive needs: No Hearing needs: No Vision needs: Yes Meds Allergies Allergy/AdvReac Type Severity Reaction Status Date / Time Quinolones [QUINOLONES] Allergy Unknown TENDONITIS Verified 01/17/22 14:11 Home Medications Medication Instructions Recorded Confirmed Last Taken Type aspirin 81 mg tablet,delayed 81 mg PO DAILY 09/19/20 01/17/22 12/30/20 History release omeprazole 20 mg capsule,delayed 20 mg PO DAILY 01/17/22 01/17/22 Unknown History release Exam Exam Date and Time: January 23, 2022 1010 Pertinent Lab Results Pertinent Lab Results: Laboratory Tests 01/17/22 12:39 WBC 6.0 Hgb 13.2 L Hct 38.7 L Plt Count 192 D Narrative Narrative: EKG 01/10/22 Vent. Rate : 068 BPM ? ? Atrial Rate : 068 BPM ?? P-R Int : 194 ms? QRS Dur : 090 ms ? ? QT Int : 408 ms ? ? ? P-R-T Axes : 052 -17 040 degrees ?? QTc Int : 433 ms ? 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 Father No problems noted. Family history of problems with anesthesia: No Surgical History Surgical History History of esophagogastroduodenoscopy (EGD) Hx of bilateral inguinal hernia repair Hx of cholecystectomy Hx of colonoscopy Previous back surgery History of Problems with Anesthesia: No Social History Social History Housing: House Are you a primary medical care evaluation specialist to a significant other at home: No Do you presently have visiting nurse or other home services: No Alcohol intake: current Alcohol intake frequency: 3 or more drinks per day Patient Tobacco Use Status: Never used Tobacco e-Cigarette/Vaping Use: Never Used Use of substances other than those prescribed or required for medical reasons: No Advance Directives: No Advance Directives Information Provided: Yes Recently lost weight without trying: No service: No 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 occupational status: 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 occupational exposures/hazards: Yes Cognitive needs: No Hearing needs: No Vision needs: Yes Meds Allergies Allergy/AdvReac Type Severity Reaction Status Date / Time Quinolones [QUINOLONES] Allergy Unknown TENDONITIS Verified 01/17/22 14:11 Home Medications Medication Instructions Recorded Confirmed Last Taken Type aspirin 81 mg tablet,delayed 81 mg PO DAILY 09/19/20 01/17/22 12/30/20 History release omeprazole 20 mg capsule,delayed 20 mg PO DAILY 01/17/22 01/17/22 Unknown History release Assessment and Plan Assessment Anesthesia Assessment: Anesthesia Plan Discussed Final Anesthetic Review Family History of Problems with Anesthesia: No History of Problems with Anesthesia: No NPO: Yes ASA Class: III Final Preanesthetic Review: No Changes in Pt Med Stat, Meds/Allgs Chart Reviewed, Consent Obtained/Reviewed and Anes Risks/Benef Reviewed Patient Risk: Low Procedure Risk: Low Anesthetic Plan Anesthetic Plan: MAC: Disposition: Standard PACU
[2022-01-24 06:39] VITALS: BP 132/72; PULSE 52; RESP 16; TEMP 36.3; O2SAT 98; BMI 25.8
[2022-01-24] MEDS: Lactated Ringers 1,000 ML 100 ML IVCONT (06:51)
[2022-01-24 08:12] VITALS: BP 95/55; PULSE 48; RESP 16; TEMP 36.1; O2SAT 99
--- NOTE | 2022-01-24 08:12 | P.BOP_ITS ---
Brief Operative Note Date of Service: 01/24/22 Pre-op diagnosis: GERD Post-op diagnosis: other (Small hiatal hernia, minimal gastritis) Procedure: EGD with biopsies Surgeon: Frederic Steven Anesthesia: MAC Was an Computer Graphic Artist used for this Procedure?: No Estimated blood loss (mL): 2.0 Pathology: other (A. Gastric antrum B. EG Junction at 39cm C. Descending duodenum) Condition: stable Disposition: PACU
[2022-01-24 08:25] VITALS: BP 106/64; PULSE 56; RESP 16; O2SAT 96
[2022-01-24 08:40] VITALS: BP 114/65; PULSE 51; RESP 16; TEMP 36.2; O2SAT 96
--- NOTE | 2022-01-24 12:47 | OP_ITS ---
SURGEON: Frederic Steven MD INDICATIONS: The patient presents for evaluation of reflux. Full consent has been obtained from him for this, including risks of bleeding and perforation. PREOPERATIVE DIAGNOSIS: Reflux. POSTOPERATIVE DIAGNOSIS: PROCEDURE PERFORMED: Esophagogastroduodenoscopy with biopsy. ESTIMATED BLOOD LOSS: COMPLICATIONS: ANESTHESIA: Monitored anesthesia care. ASSISTANTS: SPECIMENS: POSTOPERATIVE DIAGNOSES: Reflux, mild gastritis, minimal hiatal hernia. DESCRIPTION OF PROCEDURE: The patient was placed in the left lateral decubitus position. The Olympus video gastroscope was passed into the posterior oropharynx and upper esophagus under direct vision. The scope was passed slowly to the distal esophagus. The gastroesophageal junction appeared at 39 cm. There was some very minimal irregularity, but no evidence of esophagitis nor any definitive evidence of Geronimo mucosa. The scope entered into the stomach. There was a minimal hiatal hernia. The scope was advanced to the pylorus and the duodenum was cannulated to the descending portion. The duodenum including the bulb appeared normal without mass or ulceration. Biopsies were obtained from the 2nd and 3rd portions of duodenum. The scope was withdrawn back into the stomach. The gastric antrum had some minimal areas of erythema, but no erosions or ulceration. There was good peristalsis. Biopsies were obtained from the antrum. The scope was retroflexed visualizing the proximal stomach carefully, which appeared normal, without any sign of mass or ulceration. The scope was straightened and withdrawn back into the esophagus. Biopsies were obtained at the EG junction at 39 cm. Proximal to that the esophageal mucosa appeared normal. The scope was withdrawn from the patient. He tolerated the procedure well and was returned to the recovery area in stable condition. IMPRESSION: 1. Minimal hiatal hernia. 2. Mild gastritis. PLAN: The results of the biopsies will be checked. At this point, these findings are reassuring. I did advise him to continue omeprazole for 1 more month and then use it on a p.r.n. basis. At this point, if things remain well he could see me on a p.r.n. basis. If he continues to have significant upper GI complaints, we may want to obtain an abdominal ultrasound to rule out symptomatic gallstones, but at this point that does not appear to be the case. He was advised not to use any NSAIDs for 1 week and he was advised that he could resume his aspirin in 48 hours. This has been discussed with his . Frederic Steven MD RMMelissa/KLARISSA / [id number] MTDSuresh
== END 2022-01-24 09:03 | disposition home or self-care (01) ==
PROVIDERS: PCP Internal Medicine; Visit Provider Internal Medicine
PROC: 0DJ08ZZ Inspection of Upper Intestinal Tract, Via Natural or Artificial Opening Endoscopic (ICD-10-PCS; CPT 43235; principal; 2022-01-24 07:30)
DX: K21.9 Gastro-esophageal reflux disease without esophagitis (principal); K29.50 Unspecified chronic gastritis without bleeding; K44.9 Diaphragmatic hernia without obstruction or gangrene; I10 Essential (primary) hypertension; I71.2 Thoracic aortic aneurysm, without rupture; I27.20 Pulmonary hypertension, unspecified; F41.1 Generalized anxiety disorder; R53.83 Other fatigue; Z79.899 Other long term (current) drug therapy; Z88.8 Allergy status to other drugs, medicaments and biological substances
CPT/HCPCS: 43239; 88305; 88342; J2250

== ENCOUNTER 2022-02-02 07:44 | Outpatient (REF) | payer OTHER, SELFPAY ==
[2022-02-02 07:55] LABS: MANUAL DIFF FLAG NO
[2022-02-02 08:39] LABS: Basophils Absolute Auto 0.1 X10*3/uL (0.0-0.2); Basophils Percent Auto 1.4 % (0-2); Eosinophils Absolute Auto 0.2 X10*3/uL (0.0-0.4); Eosinophils Percent Auto 4.6 % (0-4); Hematocrit 40.8 % (42.0-52.0); Hemoglobin 13.8 g/dl (14.0-18.0); Imm Gran Abs Auto 0.01 X10*3/uL (0.00-0.03); Imm Gran Pct Auto 0.2 % (0.0-0.4); Lymphocytes Absolute Auto 1.1 X10*3/uL (1.2-4.9); Lymphocytes Percent Auto 26.1 % (20-40); Mean Corpuscular HGB Conc 33.8 g/dl (31.0-36.0); Mean Corpuscular Hemoglobin 32.4 pg (27.0-33.0); Mean Corpuscular Volume 95.8 fL (80.0-98.0); Mean Platelet Volume 11.2 fL (9.4-12.4); Monocytes Absolute Auto 0.4 X10*3/uL (0.1-1.2); Monocytes Percent Auto 8.9 % (2-11); Neutrophils Absolute Auto 2.4 x10*3/uL (2.0-8.3); Neutrophils Percent Auto 58.8 % (45-73); Platelet Count 175 X10*3/uL (160-400); Red Blood Count 4.26 X10*6/uL (4.60-5.80); Red Cell Distribution Width 12.5 % (11.0-16.0); White Blood Count 4.1 X10*3/uL (4.8-10.8)
[2022-02-02 09:30] LABS: Free T4 (Free Thyroxine) 0.92 ng/dL (0.71-1.85); Thyroid Stimulating Hormone 2.45 uIU/mL (0.32-4.0)
[2022-02-04 17:32] LABS: Lyme Abs Screen <0.90 index
== END 2022-02-02 07:45 | disposition home or self-care (01) ==
LOC: HO.LAB 07:44
PROVIDERS: PCP Internal Medicine; Visit Provider Nurse Practitioner Family
DX: T14.8XXA Other injury of unspecified body region, initial encounter (principal); W57.XXXA Bitten or stung by nonvenomous insect and other nonvenomous arthropods, initial encounter; R79.89 Other specified abnormal findings of blood chemistry; I10 Essential (primary) hypertension
CPT/HCPCS: 36415; 84439; 84443; 85025; 86617; 86618

== ENCOUNTER 2022-04-04 05:56 | Outpatient (REF) | payer OTHER, SELFPAY ==
[2022-04-04 07:12] LABS: Hematocrit 44.2 % (42.0-52.0); Hemoglobin 14.8 g/dl (14.0-18.0); Mean Corpuscular HGB Conc 33.5 g/dl (31.0-36.0); Mean Corpuscular Hemoglobin 32.3 pg (27.0-33.0); Mean Corpuscular Volume 96.5 fL (80.0-98.0); Platelet Count 184 X10*3/uL (160-400); Red Blood Count 4.58 X10*6/uL (4.60-5.80); Red Cell Distribution Width 12.5 % (11.0-16.0); White Blood Count 5.2 X10*3/uL (4.8-10.8)
[2022-04-04 07:28] LABS: Anion Gap 12 (12-20); Blood Urea Nitrogen 17 mg/dL (9-16); Calcium 9.7 mg/dL (8.4-10.2); Carbon Dioxide 29 mmol/L (22-29); Chloride 103 mmol/L (96-108); Estimated Glomerular Filt Rate > 60; Glucose Random 114 mg/dL (60-115); Potassium 5.4 mmol/L (3.3-5.1); Sodium 139 mmol/L (135-145)
== END 2022-04-04 05:57 | disposition home or self-care (01) ==
LOC: HO.LAB 05:56
PROVIDERS: PCP Internal Medicine; Visit Provider Internal Medicine
DX: D61.818 Other pancytopenia (principal)
CPT/HCPCS: 36415; 80048; 85027

== ENCOUNTER 2022-10-12 08:24 | Outpatient (REF) | payer OTHER, SELFPAY ==
[2022-10-12 09:22] LABS: Influenza A PCR NEGATIVE (Negative); Influenza B PCR NEGATIVE (Negative); Resp Syncy Virus RNA Qual PCR NEGATIVE (Negative); SARS COV2 PCR INHOUSE NEGATIVE (Negative)
== END 2022-10-12 08:25 | disposition home or self-care (01) ==
LOC: HO.LAB 08:24
PROVIDERS: Visit Provider Internal Medicine
DX: Z20.822 Contact with and (suspected) exposure to COVID-19 (principal)
CPT/HCPCS: 0241U

== ENCOUNTER 2022-12-10 17:16 | Outpatient (REF) | payer OTHER, SELFPAY ==
--- NOTE | ~2022-12-10 | MR_ITS ---
EXAMINATION: MR LUMBAR SPINE WITHOUT AND WITH CONTRAST CLINICAL INFORMATION: Lower back pain, right leg numbness and pain COMPARISON: None available. TECHNIQUE: MRI of the lumbar spine was obtained using routine sequences with and without contrast. Intravenous contrast: 7.5 mL Gadavist FINDINGS: Transitional lumbosacral anatomy. The last rib-bearing vertebra is designated T12. There are 5 lumbar type vertebral bodies with a lumbarized S1 and fairly well-formed disc space at S1-S2. Grade 1 anterolisthesis of L5 on S1. No suspicious marrow signal or focal osseous lesion. Mild edema along the posterior L3-L4 endplate. The vertebral body heights are maintained. Multilevel degenerative disc desiccation and height loss, worst at L5-S1.. The conus medullaris terminates at the level of L2. The distal spinal cord is normal in appearance. The cauda equina nerve roots appear normal. No abnormal intradural enhancement. No significant abnormalities of the paraspinal musculature.. Limited evaluation of the intra-abdominal structures without significant abnormalities. The abdominal aorta is of normal contour and caliber. SPINAL LEVELS: T12-L1: No significant spinal canal or neural foraminal narrowing L1-L2: Small right eccentric disc bulge. Mild facet arthropathy. Mild right greater than left subarticular zone narrowing. Mild bilateral neural foraminal narrowing. No significant spinal canal stenosis L2-L3: Disc osteophyte complex. Mild to moderate facet arthropathy. No significant central spinal canal stenosis. Moderate bilateral neural foraminal narrowing L3-L4: Broad-based disc bulge, facet arthropathy. Bilateral subarticular zone effacement with mass effect on the traversing L4 nerve roots. Mild central spinal canal stenosis. Moderate bilateral neural foraminal narrowing. L4-L5: Broad-based disc bulge with large central protrusion. Facet arthropathy and ligamentum flavum thickening. Moderate central spinal canal stenosis. Effacement of the subarticular zones with mass effect on the traversing L5 nerve roots. Moderate bilateral neural foraminal narrowing. L5-S1: Postlaminectomy changes. Anterolisthesis with posterior disc uncovering. Ankylosis of the facet joints. There is no significant central spinal canal stenosis. Mild to moderate neural foraminal encroachment, predominantly on the basis of anterolisthesis. MR/MR lumbar spine wo/w con IMPRESSION: 1. Transitional lumbosacral anatomy with lumbarized S1 2. At L5-S1, there are postoperative changes from laminectomy with patent canal. There is grade 1 anterolisthesis at this level with mild to moderate bilateral neural foraminal encroachment. 3. Multilevel lumbar spondylosis as described above, worst at L4-L5 where there is moderate spinal canal stenosis and effacement of the subarticular zones with mass effect on the traversing L5 nerve roots. There is also mild spinal canal stenosis at L3-L4. Multilevel mild to moderate neural foraminal stenosis as described above.
== END 2022-12-10 17:17 | disposition home or self-care (01) ==
LOC: HO.MRI 17:16
PROVIDERS: PCP Internal Medicine; Visit Provider Internal Medicine
DX: M54.50 Low back pain, unspecified (principal)
CPT/HCPCS: 72158; A9585

== ENCOUNTER → 2022-12-20 15:10 | Outpatient (BNVA) | payer OTHER, SELFPAY | PROVIDERS: PCP Internal Medicine; Visit Provider Physician Assistant | DX: Z13.89 Encounter for screening for other disorder (principal) ==

== ENCOUNTER 2022-12-23 11:20 | Outpatient (REF) | payer OTHER, SELFPAY ==
--- NOTE | ~2022-12-23 | XR_ITS ---
EXAMINATION: XR LUMBOSACRAL SPINE WITH OBLIQUES CLINICAL INFORMATION: Other intervertebral disc displacement, lumbar region. COMPARISON: CT abdomen and pelvis 10/27/2020, MRI lumbar spine 12/10/2022. TECHNIQUE: AP, both oblique, and lateral views of the lumbar spine. Lateral view of the lumbosacral junction. FINDINGS: Again seen are degenerative changes in the lumbar spine with disc space narrowing at most levels, most marked at L5-S1 and L2-L3. There has been a laminectomy L5. Again seen is grade 1 anterolisthesis of L5 upon S1. There is no change with either extension or flexion. No bony destructive lesions. No fractures. Mild degenerative changes are present in the hips. XR/XR lumbar spine 6V w bending IMPRESSION: Degenerative changes in the lumbar spine with grade 1 anterolisthesis of L5 upon S1.
== END 2022-12-23 11:21 | disposition home or self-care (01) ==
LOC: HO.HOSX 11:20
PROVIDERS: PCP Internal Medicine; Visit Provider Physician Assistant
DX: M51.26 Other intervertebral disc displacement, lumbar region (principal)
CPT/HCPCS: 72114

== ENCOUNTER 2023-01-28 06:09 | Day surgery (SDC) | payer OTHER, SELFPAY ==
--- NOTE | 2023-01-15 | ECG_ITS ---
Test Reason : preop Blood Pressure : / mmHG Vent. Rate : 049 BPM Atrial Rate : 049 BPM P-R Int : 198 ms QRS Dur : 090 ms QT Int : 444 ms P-R-T Axes : 054 -18 019 degrees QTc Int : 401 ms Sinus bradycardia with Sinus Arrhythmia Minimal voltage criteria for LVH, may be normal variant ( R in aVL ) Borderline ECG When compared with ECG of 10-JAN-2022 18:10, No significant changes seen Referred By: Moni Brannon Electronically Signed By:LEILANI VELEZ MD
[2023-01-15 13:22] VITALS: BP 110/67; PULSE 55; RESP 16; O2SAT 97; BMI 25.2
--- NOTE | 2023-01-15 13:36 | HO.ANESPROP2 ---
Documented by User: Moni Brannon NP 01/23/23 14:28 HPI - Anesthesia Eval Consult details Narrative: 72yo M for Right L4-5 Microdiscectomy, 01/28/23 Cardiac w/u 2021 after episode of chest pain found to be noncardiac: EKG stable, no trop, treadmill nuc stress negative for ischemia, echo stable. PMFSH Active Problems Active Problems: All Active Problems (Updated 01/15/23 @ 13:18 by Jenna Mckinney RN) Generalized anxiety disorder (Acute) Fatigue (Acute) Screening for colon cancer (Acute) Thoracic aortic aneurysm (Acute) Screening for hypothyroidism (Acute) Hypertension (Acute) Elevated TSH (Acute) Tick bite (Acute) Hospital discharge follow-up (Acute) Pancytopenia (Acute) Pulmonary hypertension (Acute) Low back pain (Acute) Lumbar disc herniation (Acute) Elevated liver enzymes (Acute) Past Medical History Medical History (Updated 01/28/23 @ 06:27 by Kalee Barker RN) Back pain Bilateral femoral hernia Bradycardia Elevated liver enzymes FH: cholecystectomy GERD (gastroesophageal reflux disease) 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 Father No problems noted. Family history of problems with anesthesia: No Surgical History Surgical History (Updated 01/15/23 @ 13:17 by Jenna Mckinney RN) History of esophagogastroduodenoscopy (EGD) Hx of bilateral inguinal hernia repair Hx of cholecystectomy Hx of colonoscopy Previous back surgery History of Problems with Anesthesia: No Social History Social History Housing: House Are you a primary rn progressive care unit to a significant other at home: No Do you presently have visiting nurse or other home services: No Alcohol intake: current Alcohol intake frequency: 3 or more drinks per day Patient Tobacco Use Status: Never used Tobacco e-Cigarette/Vaping Use: Never Used Use of substances other than those prescribed or required for medical reasons: No Have you been hit, kicked, punched, or otherwise hurt by someone within the past year? 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 occupational exposures/hazards: Yes Cognitive needs: No Hearing needs: No Vision needs: Yes Narrative Narrative: No recent illness No CP/SOB with >2 hours exercise daily Meds Allergies Allergy/AdvReac Type Severity Reaction Status Date / Time Quinolones [QUINOLONES] AdvReac Intermediate TENDONITIS Verified 01/15/23 13:19 Home Medications Medication Instructions Recorded Confirmed Last Taken Type aspirin 81 mg tablet,delayed 81 mg PO DAILY 09/19/20 01/15/23 01/17/23 History release losartan 25 mg tablet 25 mg PO QAM 01/15/23 01/15/23 01/27/23 History Exam Exam Date and Time: January 15, 2023 1336 Height,Weight and Vital Signs: Height 5 ft 7 in Weight 73.028 kg Last Vital Signs Pulse 55 01/15/23 13:22 Resp 16 01/15/23 13:22 BP 110/67 01/15/23 13:22 Pulse Ox 97 01/15/23 13:22 O2 Del Method Room Air 01/15/23 13:22 Pertinent Lab Results Pertinent Lab Results: Lab Results 01/15/23 01/15/23 Range/Units 14:12 14:12 WBC 5.8 (4.8-10.8) X10*3/uL RBC 4.61 (4.60-5.80) X10*6/uL Hgb 14.8 (14.0-18.0) g/dl Hct 43.2 (42.0-52.0) % MCV 93.7 (80.0-98.0) fL MCH 32.1 (27.0-33.0) pg MCHC 34.3 (31.0-36.0) g/dl RDW 12.5 (11.0-16.0) % Plt Count 185 (160-400) X10*3/uL MPV 10.8 (9.4-12.4) fL Absolute Nucleated RBC 0.000 (0.0-0.012) X10*3/uL Nucleated RBC % (auto) 0.0 (0.0-0.2) /100WBC Sodium 140 (135-145) mmol/L Potassium 4.7 (3.3-5.1) mmol/L Chloride 104 (96-108) mmol/L Carbon Dioxide 28 (22-29) mmol/L Anion Gap 13 (12-20) BUN 21 H (9-16) mg/dL Creatinine 0.89 (0.5-1.4) mg/dL Estim Creat Clear Calc 70.1 Estimated GFR > 60 Random Glucose 78 (60-115) mg/dL Calcium 9.8 (8.4-10.2) mg/dL Total Bilirubin 0.9 (0.0-1.0) mg/dL AST 27 (5-37) U/L ALT 21 (0-40) U/L Alkaline Phosphatase 58 (39-117) U/L Total Protein 7.0 (6.5-8.0) g/dL Albumin 4.5 (3.5-5.0) g/dL Narrative Narrative: EKG 01/2023 Vent. Rate : 049 BPM ? ? Atrial Rate : 049 BPM ?? P-R Int : 198 ms? QRS Dur : 090 ms ? ? QT Int : 444 ms ? ? ? P-R-T Axes : 054 -18 019 degrees ?? QTc Int : 401 ms ? Sinus bradycardia with Sinus Arrhythmia Minimal voltage criteria for LVH, may be normal variant ( R in aVL ) Borderline ECG When compared with ECG of 10-JAN-2022 18:10, No significant changes seen ECHO 12/2021 LVEF 60-65%, no wall motion abn, borderline pulmonary htn with PA pressure of 35-40mmHg Airway Mallampati Class: III TM Dist: >3cm Neck ROM: Full Loose/Missing/Broken Teeth: Yes (Right lower missing) Heart: RRR Lungs: CTAB Assessment and Plan Assessment Anesthesia Assessment: Anesthesia Plan Discussed and PAT Visit Final Anesthetic Review Family History of Problems with Anesthesia: No History of Problems with Anesthesia: No Documented by User: Endre Clifford, MD 01/28/23 07:20 [facility] Past Medical History Medical History (Updated 01/28/23 @ 06:27 by Kalee Barker, RN) Back pain Bilateral femoral hernia Bradycardia Elevated liver enzymes FH: cholecystectomy GERD (gastroesophageal reflux disease) 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 Father No problems noted. Surgical History Surgical History (Updated 01/15/23 @ 13:17 by Jenna Mckinney, CHRIS) History of esophagogastroduodenoscopy (EGD) Hx of bilateral inguinal hernia repair Hx of cholecystectomy Hx of colonoscopy Previous back surgery Social History Social History Housing: House Are you a primary rn progressive care unit to a significant other at home: No Do you presently have visiting nurse or other home services: No Alcohol intake: current Alcohol intake frequency: 3 or more drinks per day Patient Tobacco Use Status: Never used Tobacco e-Cigarette/Vaping Use: Never Used Use of substances other than those prescribed or required for medical reasons: No Have you been hit, kicked, punched, or otherwise hurt by someone within the past year? 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 occupational exposures/hazards: Yes Cognitive needs: No Hearing needs: No Vision needs: Yes Meds Allergies Allergy/AdvReac Type Severity Reaction Status Date / Time Quinolones [QUINOLONES] AdvReac Intermediate TENDONITIS Verified 01/15/23 13:19 Home Medications Medication Instructions Recorded Confirmed Last Taken Type aspirin 81 mg tablet,delayed 81 mg PO DAILY 09/19/20 01/15/23 01/17/23 History release losartan 25 mg tablet 25 mg PO QAM 01/15/23 01/15/23 01/27/23 History Assessment and Plan Assessment Anesthesia Assessment: Chart Reviewed Final Anesthetic Review NPO: Yes ASA Class: III Final Preanesthetic Review: No Changes in Pt Med Stat, Meds/Allgs Chart Reviewed, Consent Obtained/Reviewed and Anes Risks/Benef Reviewed Patient Risk: Intermediate Procedure Risk: Intermediate Anesthetic Plan Anesthetic Plan: GA Disposition: Standard PACU
[2023-01-15 15:04] LABS: Hematocrit 43.2 % (42.0-52.0); Hemoglobin 14.8 g/dl (14.0-18.0); Mean Corpuscular HGB Conc 34.3 g/dl (31.0-36.0); Mean Corpuscular Hemoglobin 32.1 pg (27.0-33.0); Mean Corpuscular Volume 93.7 fL (80.0-98.0); Mean Platelet Volume 10.8 fL (9.4-12.4); Platelet Count 185 X10*3/uL (160-400); Red Blood Count 4.61 X10*6/uL (4.60-5.80); Red Cell Distribution Width 12.5 % (11.0-16.0); White Blood Count 5.8 X10*3/uL (4.8-10.8)
[2023-01-15 16:17] LABS: Alanine Aminotransferase 21 U/L (0-40); Albumin Level 4.5 g/dL (3.5-5.0); Alkaline Phosphatase 58 U/L (39-117); Anion Gap 13 (12-20); Aspartate Amino Transferase 27 U/L (5-37); Bilirubin Total 0.9 mg/dL (0.0-1.0); Blood Urea Nitrogen 21 mg/dL (9-16); Calcium 9.8 mg/dL (8.4-10.2); Carbon Dioxide 28 mmol/L (22-29); Chloride 104 mmol/L (96-108); Creatinine Clr Calc Pharmacy 70.1; Estimated Glomerular Filt Rate > 60; Glucose Random 78 mg/dL (60-115); Potassium 4.7 mmol/L (3.3-5.1); Sodium 140 mmol/L (135-145)
[2023-01-28] VITALS (13 sets, daily range): BP systolic 130–161; BP diastolic 67–83; PULSE 44–63; RESP 8–20; TEMP 36.1; O2SAT 96–100
--- NOTE | ~2023-01-28 | FL_ITS ---
EXAMINATION: XR FLUOROSCOPY WITH IMAGES CLINICAL INFORMATION: L4-L5 microdiscectomy COMPARISON: None available. TECHNIQUE: Fluoroscopy Supervised By: Curtis. Fluoroscopy Time: 0 minutes. Cumulative Dose: 1.5 mGy. DAP: 0.03 mGym2. Images: 1. FINDINGS: Images demonstrate posterior surgical instruments projecting over the spinous processes at L4-L5 and probe projecting adjacent to the posterior inferior L4 vertebral body. FL/FL guidance in OR IMPRESSION: Fluoroscopic guidance for L4-L5 microdiscectomy.
[2023-01-28] MEDS: methocarbamoL 750 MG TABLET PO (06:20)
[2023-01-28] MEDS: Gabapentin 300 MG CAPSULE PO (06:20)
[2023-01-28] MEDS: Lactated Ringers 1,000 ML 100 ML IVCONT (06:40)
--- NOTE | 2023-01-28 09:14 | P.OP_ITS ---
Operative Note Operative Note Date of Service: 01/28/23 Narrative: Preoperative diagnosis: Right lumbar radiculopathy due to disc herniation Postoperative diagnosis: Same Procedure: right L4-5 lumbar microdiskectomy with microscope Surgeon: Malachi Acevedo MD, PhD Rail Doweling Machine Operator: Rajiv West PA-C this patient has an extensive spinal history with a previous L5-S1 diskectomy that resulted in permanent right leg pain. He recently experienced a significant increase in back pain but also into the right lack. An MRI shows a large central extruded disc herniation compressing the thecal sac and exiting nerve roots. The patient was offered a lumbar microdiskectomy to decompress the nerve root. The procedure complications were explained. The patient was consented. The patient was brought to the operating room and endotracheally intubated. The patient was turned in a prone position on the Maicol frame. Prepping and draping was done followed by time-out. A mid lumbar incision was made followed by release of the paravertebral muscles on the Right side to expose the L4-5 interspace. An intraoperative x-rays obtained to confirm the correct level. The microscope was brought in. A L4 laminotomy was done followed by opening of the flavum ligament. The [id number] root was identified and retracted medially to expose the and L4-5 disc space. I could palpate a large disc herniation medial from the L5 nerve root, which was removed piecemeal with a straight and curved pituitary. Large fragments were evacuated. This resulted in an excellent decompression of the L5 nerve root. Hemostasis was done. The microscope was removed. Marcaine was injected intramuscularly.The incision was closed in two layers. Steri-Strips used to approximate seizure. An op-site were taken there was used to cover the incision. All sponge and needle counts were correct. Patient was extubated and transported in stable condition to recovery room. this procedure was done with the aid of a physician teachers assistant who performed the performed the closure of the incision. Anesthesia: General Blood loss: 10 mL Complications: None Specimen: None Disposition: Discharge home
--- NOTE | 2023-01-28 09:24 | P.DS_ITS ---
DS: Providers Provider Date of Service: 01/28/23 Date of discharge: 01/28/23 Primary care physician: Joe Shah MD Admitting clinician: Malachi Acevedo DS: Diagnosis Discharge Diagnosis (1) Lumbar disc herniation: Status: Acute DS: Summary Time Spent with Patient Time attestation: Total time managing care of this patient today ____ minutes. Discharge coordination time: Less than 30 minutes Quality: Safe Use of Opioids Does Pt have an Active Cancer Diagnosis on the Problem List?: No Quality: Stroke Does the patient have a stroke diagnosis?: No Physical Exam Vital Signs: Vital Signs: Last Vital Signs Temp 97 F 01/28/23 06:12 Pulse 54 01/28/23 06:12 Resp 20 01/28/23 06:12 BP 161/79 H 01/28/23 06:12 Pulse Ox 98 01/28/23 06:12 O2 Del Method Room Air 01/28/23 06:12 BMI result Body Mass Index 25.2 Discharge Plan Discharge Patient Disposition: Home, Self-Care Referrals: Joe Shah MD [Primary Care Provider] - 1 Week Discharge Medications: New tramadol 50 mg tablet 50 mg PO Q6H PRN (Reason: pain ) Qty: 30 0RF Continued lorazepam 1 mg tablet 1 mg PO DAILY PRN (Reason: anxiety) Qty: 30 0RF losartan 25 mg tablet 25 mg PO QAM aspirin 81 mg tablet,delayed release (DR/EC) 81 mg PO DAILY Discharge Orders: Discharge Order (Routine); Ordered 01/28/23 Ordered By: Rajiv West Diet: Advance to usual diet Activity on Discharge: As tolerated Activity Restrictions/Additional Instructions: After your spinal surgery we ask you to observe the following restrictions/guidelines: Activity: It is normal to feel some discomfort as you increase your activity, but that will improve with time. We ask you avoid heavy lifting or acitivities that cause pain. As a general rule, 8lbs is a safe limit for lifting right after surgery. Walk as much as you feel comfortable but not to exhaustion. You will feel extra tired the first few days after surgery. Stay well hydrated. It is OK to walk up and down stairs You may return to driving when you are off narcotics (such as vicodin, oxycodone, dilaudid, etc), and you are back to normal functional capacity. If you have any concerns please check with office before driving. Return to work is specific to each patient and each surgery, so please speak with your doctor/PA at first follow up. Please bring paperwork such as FMLA at that time if you need it filled out. Medications: We will give you a short supply of narcotics after surgery (usually one weeks worth). If you need more please call the office but do not use more than prescribed. You will need to give our office 48 hours notice if you need narcotics refilled and we do not fill narcotics on weekends or evenings. If you are on a narcotic, it is a good idea to take a stool softener such as colace or senna to avoid constipation If you take blood thinner such as aspirin, Plavix, Coumadin, Effient, Eliquis e tc for conditions such as Afib, DVT, Pulmonary embolus, coronary disease, stents etc please speak with your surgeon about specific details as to when you can resume these medications. You can resume NSAIDs on post op day 1 (eg: Motrin, Naproxen, etc). Follow up: Please call the office, , after surgery to arrange a 3 week follow up for wound check. Wound Care: You may remove your dressing on the first day after surgery. You may leave open to air. Please do not remove the steri strips underneath. they will fall off on their own in one week. IT IS NORMAL FOR THE WOUND TO OOZE OR BE BLOODY FOR A FEW DAYS AFTER SURGERY. IF THIS HAPPENS JUST PLACE NEW DRESSING OVER IT TO AVOID STAINING CLOTHES. You may shower on post op day # 1 We ask that you do not let the water soak the wound. If it does get wet, just towel dry lightly. Please do not scrub your incision or place any type of chemical/ointment on the wound. No tub baths, pools or jacuzzis for one month. If you have any leaking or redness from your wound, or fevers, please call office
[2023-01-28] MEDS: Racepinephrine HCL 0.5 ML VIAL.NEB INHALE (10:06)
[2023-01-28] MEDS: fentaNYL citrate/PF 100 MCG/2 ML VIAL 50 MCG IVPUSH (10:11)
[2023-01-28] MEDS: oxyCODONE HCl Immed Release 5 MG TABLET 10 MG PO (10:16)
== END 2023-01-28 11:50 | disposition home or self-care (01) ==
PROVIDERS: Nurse Practitioner; PCP Internal Medicine; Visit Provider Neurological Surgery
PROC: (CPT 63030; principal; 2023-01-28 07:30)
DX: M51.26 Other intervertebral disc displacement, lumbar region (principal); M54.16 Radiculopathy, lumbar region
CPT/HCPCS: 63030; 36415; 80053; 85027; 93005; 94640; J0131; J0690; J1100; J1885; J2250; J2405; J3010

== ENCOUNTER → 2023-02-11 14:01 | Outpatient (BNVA) | payer OTHER, SELFPAY | PROVIDERS: PCP Internal Medicine; Visit Provider Neurological Surgery ==

== ENCOUNTER 2023-04-17 13:27 | Outpatient (AMB) | payer OTHER, SELFPAY ==
--- NOTE | 2023-04-17 13:30 | A.OFFPC_ITS ---
Vital Signs 04/17/23 13:33 Height 5 ft 7 in Weight 162 lb 2 oz BMI 25.4 BP 120/70 Blood Pressure Location Lt brachial Position Sitting Pulse 50 Pulse Source Pulse Oximeter Pulse Oximetry (%) 95 Oxygen Delivery Method Room Air Intake Visit Reasons: disorder/smell Intake Note: Patient is here today for altered sense of smell. Net Ui Developer Required: No Coke Worker: Not Required per policy Accompanied by: Self / Same As Patient Allergies Quinolones [QUINOLONES] Adverse Reaction (Intermediate, Verified 04/20/23 16:20) TENDONITIS Medication List - Last Reconciled 04/20/23 by Joe Shah MD lorazepam 1 mg PO DAILY PRN losartan 25 mg PO QAM Tobacco use date assessed: 04/17/23 Fall risk assessment: No Falls in past year Last assessed Fall Risk: 04/17/23 Dental Screening Dental Screen Date: 04/17/23 Did you have a dental visit in the last 12 months?: Yes Did you have a dental problem in the last 6 months where you did not have access to dental care?: No Was dental information given to patient?: Patient has dentist HPI disorder/smell HPI Details 72-year-old male presents to the office to discuss a specific issue. Since last office visit patient underwent a microdiskectomy and a lot of his numbness symptoms in the right leg has improved. Patient is now complaining of a different smell that he is perceiving all the time. He feels that he is always in a room full of tobacco. The smell never leaves him. He would like to be worked up for smell disorders. 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 Father No problems noted. 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 Frederic Sierra, Sally Alvarenga, Antwon Genao and colleagues, with an educational hermelinda from [employer]. Physical exam (Primary Care) Vital Signs: Last Vital Signs Pulse 50 04/17/23 13:33 BP 120/70 04/17/23 13:33 Pulse Ox 95 04/17/23 13:33 Oxygen Delivery Method Room Air 04/17/23 13:33 BMI result Body Mass Index 25.4 Tobacco/Smoking Status: Tobacco use Status Tobacco use date assessed 04/17/23 04/17/23 13:38 Patient Tobacco Use Status Never used Tobacco 04/17/23 13:38 e-Cigarette/Vaping Use Never Used 04/17/23 13:38 Thrive Assessment: Date of Thrive Assessment Date Thrive assessed 11/18/22 04/17/23 13:38 Const General: cooperative, healthy appearing and comfortable [facility] Head: Yes normal to inspection and Yes atraumatic Eyes General: appearance normal, both eyes and all related structures Neck Neck: Yes normal visual inspection and Yes full ROM Chest Chest palpation & inspection: normal inspection of the chest and crepitus Resp Effort & Inspection: normal respiratory effort Auscultation: clear to auscultation bilaterally Extrem General: Yes normal to inspection and Yes full ROM Assessment and Plan Assessment & Plan (1) Phantosmia: Code(s): R44.2 - Other hallucinations Plan: Phantosmia is the sensation of in order that is in present. I will begin the workup by ordering a CT scan of the head. Patient never had COVID. Orders: Orders CT head/brain wo IV con 04/17/23 R43.0 - Anosmia Medications: Discontinued losartan 25 mg PO DAILY 90 tabs 0RF I10 - Essential (primary) hypertension lorazepam 1 mg PO DAILY PRN 30 tabs 0RF anxiety Coding Level of Care Code Est Pt Level 4 (68305) Diagnoses Phantosmia R44.2
[2023-04-17 13:33] VITALS: BP 120/70; PULSE 50; O2SAT 95; BMI 25.4
== END 2023-04-17 14:47 | disposition home or self-care (01) ==
PROVIDERS: PCP Internal Medicine; Visit Provider Internal Medicine
DX: R44.2 Other hallucinations (principal)
CPT/HCPCS: 99214

== ENCOUNTER 2023-05-06 13:54 | Outpatient (REF) | payer OTHER, SELFPAY ==
--- NOTE | ~2023-05-06 | CT_ITS ---
EXAMINATION: CT HEAD WITHOUT CONTRAST CLINICAL INFORMATION: 72-year-old with anosmia. COMPARISON: None available. TECHNIQUE: Contiguous axial imaging was performed from the skull base to vertex without intravenous administration of contrast. This CT examination was performed using dose optimization techniques as appropriate, variously including the following: *Automated exposure control *Adjustment of mA and/or kV according to patient size (this includes techniques or standardized protocols for targeted exams where dose is matched to indication/reason for exam; i.e. extremities or head) *Use of iterative reconstruction technique DLP: 719 mGy-cm FINDINGS: Brain Volume: Mild generalized diffuse parenchymal volume loss within the limitations of qualitative assessment. Structural: No malformations. Brain and Meninges: Alarcon-white matter differentiation is intact. No acute territorial infarct, hemorrhage, extra-axial fluid collection, space-occupying process, or mass effect. Scattered patchy foci of hypodensity in the subcortical white matter of both cerebral hemispheres, likely reflecting chronic ischemic microangiopathy. Limited assessment of the olfactory grooves demonstrates that the grooves are symmetric with normal CSF attenuation with a normal appearance to the gyrus rectus and orbital frontal gyri bilaterally. Ventricles and Subarachnoid Spaces: The ventricular system and subarachnoid spaces are approximately proportional to the degree of parenchymal volume loss, without hydrocephalus. Orbital Structures: Grossly unremarkable within the limitations of the study. Osseous Structures, Sinuses/Mastoids, Extracranial Soft Tissues: Prominent pacchionian granulation noted along the left posterior frontal convexity. The bony structures are otherwise grossly intact. There are some opacified left mastoid air cells consistent with a mastoid effusion which is nonspecific. The visualized extracranial soft tissue structures are grossly unremarkable within the limitations of the exam. CT/CT head/brain wo IV con IMPRESSION: 1. No acute intracranial process. No evidence for intracranial mass lesion, space-occupying process or mass effect. 2. 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 3. Nonspecific left mastoid effusion. Correlate for clinical otologic disease on the left. 4. Grossly unremarkable appearance to the olfactory apparatus and olfactory recesses within the limitations of this exam.
== END 2023-05-06 13:55 | disposition home or self-care (01) ==
LOC: HO.CT 13:54
PROVIDERS: PCP Internal Medicine; Visit Provider Internal Medicine
DX: R43.0 Anosmia (principal)
CPT/HCPCS: 70450

== ENCOUNTER 2023-06-16 13:00 | Outpatient (REF) | payer OTHER, SELFPAY | END 2023-06-16 13:01 | disposition home or self-care (01) | LOC: HO.LNP 13:00 | PROVIDERS: Visit Provider Surgery | DX: L82.1 Other seborrheic keratosis (principal); Z79.899 Other long term (current) drug therapy | CPT/HCPCS: 11401; 88305 ==

== ENCOUNTER 2023-06-16 15:32 | Outpatient (AMB) | payer OTHER, SELFPAY ==
--- NOTE | 2023-06-16 15:07 | A.OFFVIS_ITS ---
Intake Intake Visit Reasons: Lesions lt chest Allergies Quinolones [QUINOLONES] Adverse Reaction (Intermediate, Verified 04/20/23 16:20) TENDONITIS Medication List - Last Reconciled 06/16/23 by Mathieu Miranda MD lorazepam 1 mg PO DAILY PRN losartan 25 mg PO QAM HPI HPI Comments History of Present Illness Details Patient who is well known to me presents with 3 seen out seborrheic keratotic lesions involving the right lateral neck. There increasing size, become more symptomatic. He has had the several years time. The most lateral 1 is a bit larger and the patient is concerned about this. Chart was reviewed patient evaluated. 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 Father No problems noted. 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 l Office Procedures Excision Details: Risks, benefits, alternatives of electrodesiccation and curettage of seborrheic keratotic lesions of right neck reviewed the patient included but not limited to bleeding, infection, recurrence, numbness, pain, scarring , patient wished to proceed. After appropriate positioning, patient underwent 1% lidocaine and Betadine prep and uneventful like to this occasion followed by curettage of senile seborrheic keratotic lesions. The most lateral measured approximately 1 x 1 cm sent to pathology for specimen taken. The other 2 were disposed of. A completion, wounds irrigated, secured hemostasis, and bacitracin followed by sterile dressing applied. Patient tolerated procedure well. 22851-qvuze/arms/legs 0.6-1cm Procedure code (CPT) selection complete Office Meds lidocaine 1 %-epinephrine 1:100,000 injection solution Performing Provider: Mathieu Miranda MD Performing Location: [facility] [place] [facility] Administered by: Mathieu Miranda MD on 06/16/23 15:09 Dose Route Admin Location Dispensed Lot Number Expiration Date [facility] Armature Repairer 10 mL Infiltration 10 mL Assessment & Plan Assessment & Plan (1) Seborrheic keratosis: Code(s): L82.1 - Other seborrheic keratosis Orders: Orders AMB Excision Today L82.1 - Other seborrheic keratosis Coding Level of Care Code New Pt Level 4 (20155) Diagnoses Seborrheic keratosis L82.1 CPT Codes Trunk/Arms/Legs - CPT: 21619-nmmxx/arms/legs 0.6-1cm ([id number])
== END 2023-06-16 15:35 | disposition home or self-care (01) ==
LOC: HO.HGS 15:32
PROVIDERS: PCP Internal Medicine; Visit Provider Surgery
DX: L82.1 Other seborrheic keratosis (principal)
CPT/HCPCS: 11401; 99204

== ENCOUNTER 2025-03-14 15:13 | Outpatient (AMB) | payer MEDICARE, BC, SELFPAY ==
--- OUTSIDE RECORDS SUMMARY | 2024-04-20 07:00 | XMS_ITS ---
Author Organization [facility] Address [address] [place] [phone] Care Team Providers Care Assembling Motor Builder Name Role Phone Nesha Fernandez M.D., Flo Primary Care Provider Unavailable RACHANA LERNER [phone] REASON FOR VISIT (P)/Eval/treat low back pain Encounters Encounter Location Date Provider Diagnosis [facility] [address] [phone] 04/20/2024 RACHANA LERNER Plan Of Treatment No Information Progress Notes * Eliu SAUCEDODOB: [birth year] (74 yo M)Acc No.[id number]:04/20/2024 New Patient Patient: Eliu STOCK Provider: Rudy Capps DO :1950 A ge:73 Y S ex:Male Date:04/20/2024 Address:[address] [place], [place] [id number] Pcp:Fol Jeffries Pp, cp, M.D. Subjective: * Chief Complaints: * 1 . (P)/Eval/treat low back pain. * HPI: H PI:[facility]: PCP? Vibha Fernandez M.D., LAN [...] History: Objective: * Vitals: * Examination: [facility]: GENERAL APPEARANCE: I n no acute distress, [...] Electronic signature of SHANKAR LERNER DO on 03/14/2025 at 03:35 PM EDT Sign off status: Pending * Provider: Rudy Capps, DO Date: 0 04/20/2024 Generated for Merary fiore/Adriano/Lizbeth on: 0 03/14/2025 03:35 PM EDT History and Physical Notes * HPI (History of Present Illness) Category Sub-Category Detail Notes Category Not es HPI:[facility] PCP? Flo Olmedo M.D., TIMBER [...]
--- NOTE | 2025-03-14 15:18 | HO.SPINEOV ---
Intake Visit Reasons: back pain Intake Note: Mr. Saucedo is here today c/o low back pain. 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 We did a right L4-5 microdiskectomy on him about 2 years ago. 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 He was able to walk much more comfortable. He was functioning much better although he did still have residual right distal lower extremity nerve pain. He ultimately moved to [place], was followed up there by a pain management center. He had a repeat MRI done in June in [place] and this showed what looked like possible recurrent herniated disc. At the time he is not really having much in the way of new symptoms so it was just monitored. He has continued to be active, and participate in exercises regularly. Recently over the last few months he has had a new issue come up. Typically back pain was never part of his pain picture, but recently he has developed pain going across his low back. Just in the last few weeks or so, he was bending forward to get something out of a freezer and felt something pull in his low back. He was laid up for number of days. He was not noticing any increase in his leg pain. He took some tramadol that he had left over from our surgery and some Alleve. The symptoms have abated somewhat, but he is still quite bothered by them. Sitting for any length of time is cumbersome and painful. He also has pain when he is sleeping at night. He has been doing physical therapy type exercises that he had done before his last surgery in an attempt to help with the symptoms. He does not feel as though they are doing much. On my exam, he is uncomfortable, is able to stand up straight but has a hard time getting vertical. Strength is normal in the lower extremities. He had a lumbar MRI report with him from [place] showing that it looks like he may have a recurrent herniated disc on the right at L4-5. Because of his history of 2 previous back surgeries, I am going to send him for standing flexion-extension x-rays to rule out any increased instability. Also, I think we should order new MRI with and without gadolinium of the lumbar spine to evaluate for worsening of the herniated disc which we know can present with increased back pain, and also to evaluate for potential facet arthropathy given the previous 2 back surgeries. Once these studies are completed, I will see him back in the office. I refilled his tramadol for him. Total amount of time spent in this visit was 20 minutes in discussion of symptoms, ordering imaging and subsequent plan of care Rajiv Acevedo MD,PhD [facility] Orders: Orders MR lumbar spine wo/w con Today M51.26 - Other intervertebral disc displacement, lumbar region, M54.50 - Low back pain, unspecified XR lumbar spine 4V min Today M51.26 - Other intervertebral disc displacement, lumbar region, M54.50 - Low back pain, unspecified Medications: New tramadol 50 mg PO Q8H PRN 20 tabs 0RF pain Coding Level of Care Code Est Pt Level 3 (14266) Diagnoses Low back pain M54.50 Lumbar disc herniation M51.26
--- OUTSIDE RECORDS SUMMARY | 2025-03-14 15:35 | XMS_ITS ---
Author Name [facility] Organization Unknown History of Medication Use Medication Directions Dispensed Refills Start Date End Date Stat us aspirin 81 mg chewable tablet Chew 1 tablet daily. active LORazepam (Ativan) 1 mg tablet Take 0.5 tablets by mouth. active losartan (Cozaar) 25 mg tablet Take 1 tablet by mouth daily. active Problems Problem Status Onset Date Problem Type Date of Resoluti on Source Left ankle pain, unspecified chronicity active EncounterDiagnosisAct RI_MUS C Encounters Encounter Type Encounter Reason Primary Diagnosis Location Date Ambulatory Pain in left ankle a nd joints of left foot Pain in left ankle and joints of left foot [facility] 01/20/2025 Ambulatory Posterior tibial tendinitis, left leg Posterior tibial tendinitis, left leg [facility] 01/20/2025 Ambulatory Other shoulder lesio ns, left shoulder Other shoulder lesions, left shoulder [facility] 12/30/2024 Ambulatory Other shoulder lesio ns, left shoulder Other shoulder lesions, left shoulder [facility] 12/23/2024 Ambulatory Pain in left shoulder Pain in left shoulder [facility] 11/11/2024 Ambulatory Pain in left shoulder Pain in left shoulder [facility] 11/11/2024 Care Team Organization Name Specialty Phone Email Start Date End Da te [facility] REFERRED SELF [facility] 02/18/2025 [facility] REFERRED SELF [facility] 5
--- OUTSIDE RECORDS SUMMARY | 2025-03-14 15:35 | XMS_ITS | Patient Health Record ---
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 140 135-145 mmol/L K 4.3 3.5-5.2 mmol/L CL. 106 96-108 mmol/L CO2. 27 21-31 mmol/L ALKP. 48 38-126 U/L AST/GOT. 40 17-59 U/L ALT/GPT. 25 4-50 U/L TBIL. 0.41 0.20-1.30 mg/dL CA. 9.4 8.4-10.3 mg/dL CREAT. 0.710 0.660-1.250 mg/dL eGFR 2020. 97 >60 mL/min/1.73m^2 As recomm ended by the NKF-ASN Task Force, the reported eGFR is based on the CKD-EPI 2020 equation that does not use a race coefficient.\X0d0a\(effective 03-30-2023) BUN. 19 9-25 mg/dL GLU. 84 65-99 mg/dL ALB. 4.4 3.5-5.0 g/dL TP. 7.2 6.3-8.3 g/dL MRI LUMBAR SPINE W/O CONTRAS T Reviewed date:06/24/2024 09:51:25 AM Interpretation: Performing Lab: Notes/Report: PROCEDURE: MRI LUMBAR SPINE W/O CONTRAST INDICATIONS: Radiculopathy, lumbar region TECHNIQUE: Multi-planar multi-sequence MRI of the Lumbar spine without contrast. COMPARISON: None FINDINGS: Broad-based curvature of the lumbosacral junction with transitional configuration. For numbering purposes, partially visualized rib bearing vertebra will be labeled T12 and there will be presumed lumbarized S1. L5 will be considered the vertebra located on image number 19 series 6 The vertebral body heights are normal. No significant marrow signal abnormalities are present. Disc dessication: Throughout the visible lumbar spine Conus terminates at L1-L2 The distal spinal cord, cauda equina, and nerve roots are normal. Visualized portions of the sacrum and pelvis are unremarkable. Aorta: No aneurysm in the visible portions T12-L1: Sagittal imaging only. No stenosis. L1-2: Sagittal imaging only. Diffuse bulge. Mild bilateral facet hypertrophy. No central stenosis. Moderate right and mild left foraminal stenosis L2-3: Disc: Diffuse bulge with right foraminal protrusion.; Facets: Mild bilateral hypertrophy Central Stenosis: Not significant Subarticular zone stenosis: No significant stenosis Foraminal stenosis: Moderate right, mild left L3-4: Disc: Diffuse bulge with right foraminal and far lateral zone protrusion; Facets: Mild bilaterally with ligamentum flavum hypertrophy Central Stenosis: Mild Subarticular zone stenosis: Moderate bilaterally Foraminal stenosis: Moderate bilaterally L4-5: Disc: Diffuse bulge. Right paracentral extrusion extending into right lateral recess; Facets: Moderate bilateral hypertrophy Central Stenosis: No significant stenosis Subarticular zone stenosis: Severe on the right with compression of transiting right L5 nerve root Foraminal stenosis: Moderate to severe bilaterally L5-S1: Disc: Diffuse bulge.; Facets: Moderate bilateral hypertrophy Central Stenosis: No significant stenosis Subarticular zone stenosis: Moderate bilaterally Foraminal stenosis: Severe on the right, moderate on the left *Stenosis is reported as mild (<1/3 narrowing); moderate (<2/3 narrowing); Severe (>2/3 narrowing +/- cord compression or nerve root compression) CONCLUSION: Please note there is a transitional vertebrae configuration of lumbosacral junction. Refer to above and refer to the images for numbering purposes if any intervention is planned. 1. Central stenosis: No significant stenosis. 2. Foraminal stenosis: Moderate on the right at L1-2, moderate on the right at L2-3, moderate bilaterally at L3-4, moderate to severe bilaterally at L4-5, severe on the right and moderate on the left at L5-S1 3. Subarticular stenosis: Moderate bilaterally at L3-4, severe on the right at L4-5 with compression of transiting right L5 nerve root due to right paracentral disc extrusion 06/23/2024 12:10 PM Electronically Signed By: GT THURMAN VITAMIN B12 (B12) LEVEL, SER UM Reviewed date:03/30/2024 10:24:15 AM Interpretation: Performing Lab:, PPCP Notes/Report: B12. 250.0 239.0-931.0 pg/mL CBC WITH PLATELET AND DIFF Reviewed date:03/29/2024 03:12:36 PM Interpretation: Performing Lab:, PPCP Notes/Report: WBC 5.4 3.4-10.8 K/uL RBC 4.57 4.14-5.80 M/uL HGB. 15.0 13.0-17.7 g/dL HCT. 44.30 38.00-51.00 % MCV 97 79-97 fL MCH 32.8 26.6-33.0 pg MCHC 33.9 31.5-35.7 g/dL RDW-CV. 12.3 12.3-15.4 % PLT 166 150-450 K/uL GRAN% 55.0 GRAN# 3.0 1.4-7.0 K/uL LYMPH% 27.7 LYMPH# 1.5 0.7-3.1 K/uL MONO% 7.7 MONO# 0.4 0.1-0.9 K/uL EOS% 7.9 EOS# 0.43 0.00-0.40 k/UL BASO% 1.3 BASO# 0.07 0.00-0.20 K/uL IG% 0.4 IG# 0.02 0.00-0.10 K/uL COMPREHENSIVE METABOLIC PANE L (CMP) Reviewed date:03/29/2024 03:12:36 PM Interpretation: Performing Lab:, PPCP Notes/Report: NA. 141 135-145 mmol/L K 5.3 3.5-5.2 mmol/L CL. 106 96-108 mmol/L CO2. 26 21-31 mmol/L ALKP. 65 38-126 U/L AST/GOT. 41 17-59 U/L ALT/GPT. 24 4-50 U/L TBIL. 0.74 0.20-1.30 mg/dL CA. 10.0 8.4-10.3 mg/dL CREAT. 0.850 0.660-1.250 mg/dL eGFR 2020. 92 >60 mL/min/1.73m^2 As recomm ended by the NKF-ASN Task Force, the reported eGFR is based on the CKD-EPI 2020 equation that does not use a race coefficient.\X0d0a\(effective 12-12-2022) BUN. 18 9-25 mg/dL GLU. 99 65-99 mg/dL ALB. 4.9 3.5-5.0 g/dL TP. 7.7 6.3-8.3 g/dL FOLATE, SERUM FOLIC ACID ( NTRAL LAB) Reviewed date:03/29/2024 03:12:36 PM Interpretation: Performing Lab:, [facility] Notes/Report: FOL. 10.9 2.8-21.0 ng/mL FSH AND LH Reviewed date:03/29/2024 03:12:36 PM Interpretation: Performing Lab:, PPCP Notes/Report: FSH 2.50 FSH Reference Interval:\X0d0a\Male (19 - 65 yrs) 1.55 - 9.74 mIU/mL\X0d0a\ --\X0d0a\Female\X0d0a\ Normal Follicular phase 1.98 - 11.6 mIU/mL\X0d0a\ Mid-Cycle peak 5.14 - 23.4 mIU/mL\X0d0a\ Normal Luteal phase 1.38 - 9.58 mIU/mL\X0d0a\ --\X0d0a\Postmenopausal 21.5 - 131 mIU/mL\X0d0a\X0d0a\The normal female cycles were into follicular phase (days up to peak minus 1 day and luteal phase (days after peak plus 1 day). The positions of the mid-cycle peaks were confirmed using VITROS LH results.\X0d0a\ LH 3.23 LH Normal Refer ence Interval:\X0d0a\Female:\X0d0a\ Normal Follicular phase 2.58 - 12.1 mIU/mL\X0d0a\ Mid-Cycle peak 27.3 - 96.9 mIU/mL\X0d0a\ Normal Luteal phase 0.833 - 15.5 mIU/mL\X0d0a\ ----\X0d0a\ Postmenopausal 13.1 - 86.5 mIU/mL\X0d0a\X0d0a\The normal female cycles were into follicular phase (days up to peak minus 1 day and luteal phase (days after peak plus 1 day). LIPID PANEL Reviewed date:03/29/2024 03:12:36 PM Interpretation: Performing Lab:, PPCP Notes/Report: CHOL. 271 <200 mg/dL NCEP ATP III Guidelines:\X0d0a\Desirable: < 200 mg/dL\X0d0a\Borderline high: 200 to 239 mg/dL\X0d0a\High: > or = 240 mg/dL TRIG. 159 <150 mg/dL NCEP ATP III Guidelines:\X0d0a\Normal: < 150 mg/dL\X0d0a\Borderline high: 150-199 mg/dL\X0d0a\High: 200-499 mg/dL\X0d0a\Very high: > or = 500 mg/dL\X0d0a\ HDL. 78 >40 mg/dL NCEP ATP III Guidelines:\X0d0a\Low: Men < 40 mg/dL, Women < 50 mg/dL [High Risk Factor]\X0d0a\High: > or = 60 mg/dL [Negative Risk Factor]\X0d0a\X0d0a\ LDL-C, calc. 161 <100 mg/dL NCEP ATP III Guidelines:\X0d0a\Desirable: < 100 mg/dL\X0d0a\Above Desirable: 100-129 mg/dL\X0d0a\Borderline high: 130-159 mg/dL\X0d0a\High: 160-189 mg/dL\X0d0a\Very high: > or = 190 mg/dL CHOL/HDL. 3.5 NON HDL-C. 193 <130 mg/dL NCEP Guidelines \X0d0a\Desirable: < 130 mg/dL\X0d0a\Above desirable: 130-159 mg/dL\X0d0a\Borderline high: 160-189 mg/dL\X0d0a\High: 190-219 mg/dL\X0d0a\Very high: > or = 220 mg/dL PROLACTIN Reviewed date:03/29/2024 03:12:36 PM Interpretation: Performing Lab:, PPCP Notes/Report: Prolactin2 6.00 3.70-17.90 ng/mL 09-23-2022 redesigned assay, Prolactin2, in use. Eliminates the risk of assay interference from Biotin. PSA, TOTAL (SCREENING), SERU M Reviewed date:03/29/2024 03:12:36 PM Interpretation: Performing Lab:, PPCP Notes/Report: PSA. 1.22 <4.00 ng/mL Sex Hormone Binding Globulin (SHBG) Reviewed date:03/29/2024 03:12:36 PM Interpretation: Performing Lab:, [id number] Notes/Report: Testing performed at: [01] [address], [address], , Sound Equipment Mechanic: Allison Powers MD Sex Horm Binding Glob, Serum 85.8 19.3-76.4 nm ol/L T3 FREE, SERUM Reviewed date:03/29/2024 03:12:36 PM Interpretation: Performing Lab:, PPCP Notes/Report: FT3. 4.3 2.8-5.3 pg/mL T4 FREE, DIRECT, SERUM Reviewed date:03/29/2024 03:12:36 PM Interpretation: Performing Lab:, PPCP Notes/Report: FT4. 1.23 0.78-2.19 ng/dL Testosterone, Free, (Direct) , Serum Reviewed date:03/29/2024 03:12:36 PM Interpretation: Performing Lab:, [id number] Notes/Report: Testing performed at: [01] [address], [address], , Sound Equipment Mechanic: Allison Powers MD Free Testosterone(Direct) 6.1 6.6-18.1 pg/mL TESTOSTERONE, TOTAL, SERUM Reviewed date:03/29/2024 03:12:36 PM Interpretation: Performing Lab:, PPCP Notes/Report: Testo 453.00 71.80-623.00 ng/dL TSH, (THYROID STIMULATING HO RMONE), SERUM Reviewed date:03/29/2024 03:12:36 PM Interpretation: Performing Lab:, PPCP Notes/Report: TSH. 2.660 0.465-4.680 uIU/mL REASON FOR REFERRAL Reason eval and treat Diagnosis 1 Low back pain, unspe cified (M54.50) Referral Organization [facility] Referring Provider First Name Flo Referring Provider Last Name Emma Referring Provider Speciality Primary Ca re Referred Provider Andres Ruiz Referred Provider Specialty Neurosurgery Procedure 1 Physician Preference (PPREF) General Notes Annalise Brunner 2023 1:45:09 PM > Please send back appointment information to our office once you schedule an appointment with patient you can send fax to [phone] or email the appointment date/time to [email or web address], Thank you., Annalise Brunner 03/29/2024 1:47:33 PM > Faxed referral to Dr. Card @ [facility] (no longer [facility]) phone [phone] fax [phone], [address], [place], [address]. This office will contact patient to schedule appointment. Clinical Notes Annalise Brunner 2023 1:47:20 PM > sent p2p; no imaging/hipaa to [facility] to send p2p Referral Priority Routine Reason eval and treat Diagnosis 1 Snoring (R06.83) Referring Provider First Name Flo Referring Provider Last Name Emma Referring Provider Speciality Primary Ks re Referred Provider [facility] Referred Provider Specialty Sleep Lab Procedure 1 Physician Preference (PPREF) General Notes Zhanna Cid 11:09:54 AM > Please send back appointment information to our office once you schedule an appointment with patient by fax at [phone] or you can email the appointment date/time to [email or web address], Thank you Clinical Notes Zhanna Cid 11:10:46 AM > [facility]- Ph: [phone] Fx: [phone] A: [address] [place] [address] ~~faxed referral/ office will call to schedule pt Referral Priority Routine Referral Appointment Date 04/14/2024 Reason MRI LUMBAR SPINE WO CONTRAST - [facility]in [employer] to schedule. Letter sent 06/04 Diagnosis 1 Lumbar radiculopathy (M54.16) Referral Organization [facility] Referring Provider First Name Flo Referring Provider Last Name Emma Referring Provider Speciality Primary Ca re Referred Provider [facility] Referred Provider Specialty Diagnostic R adiology Procedure 1 MRI LUMBAR SPINE WOU T CONTRAS ([id number]) General Notes Justin Hoffman 0 06/04/2024 12:25:32 PM >Per Daniella, pt. is eligible w/NEC. Eugenia HUFF Natasha 06/15/2024 01:18:28 PM >-Not claustrophobic, -approx weight 160lbs, -no lift needed, -No metals, -No CGM Referral Priority Routine Referral Appointment Date 06/23/2024 Reason eval / treat Diagnosis 1 Lumbar radiculopathy (M54.16) Referral Organization [facility] Referring Provider First Name Flo Referring Provider Last Name Emma Referring Provider Speciality Primary Ca re Referred Provider DARLENE ALLISON Referred Provider Specialty Pain Managem ent General Notes Sayra Bhakta 06/29/2024 05:18:33 PM >Faxed referral to [facility] phone [phone] fax [phone], [address] [address] [address] [place] [address]. This office will call patient directly to schedule an appointment. Clinical Notes Sayra Bhakta 06/29/2024 05:18:50 PM >Sent referral to Dr Allison along with OV, labs, imaging, ins card and HIPAA Referral Priority Routine Referral Appointment Date 07/23/2024 MEDICATIONS Medication SIG (Take, Route, Frequency, Duration) Notes Start Date End Date Status Ketoconazole 2 % LATHER TO SCALP AND LET SIT FOR 5 MINUTES THEN WASH OFF THREE TIMES WEEKLY External for Not Available Not-Taking Lyrica 50 MG 1 capsule Orally Thr ee times a day for 30 days 10/08/2024 Not-Taki ng Misc. Devices - CPAP (auto-titrate) Machine nightly. pressure 4-20 for 99 days Active Tadalafil 5 MG 1 tablet Orally Once a day for 30 days 03/26/2024 Active LORazepam 1 MG 1 tablet Oral at [facility] ht for 30 days 03/08/2025 Active traMADol HCl 50 MG 1 tablet as needed Orally every 6 hours prn pain for 7 days 03/09/2025 Active Testosterone 1.62 % 2 pumps Transdermal Once a day for 30 days 05/27/2024 Not-Jaspreet g Amitriptyline HCl 10 MG TAKE ONE TABLET BY MOUTH ONE TIME DAILY Oral for Not Available Active ALPRAZolam 0.25 MG TAKE ONE TABLET BY MOUTH ONE TIME DAILY Oral for Not Available Active Aspirin 81 MG 1 tablet Orally Once a day Active Losartan Potassium 25 MG TAKE ONE TABLET BY MOUTH ONE TIME DAILY Oral for Not Available Active Misc. Devices - penile pump use as directed for 30 days 03/26/2024 Active Clobetasol Propionate 0.05 % APPLY TO THE SCALP NIGHTLY External for Not Available Active SOCIAL HISTORY Tobacco Use: Social History Observation Description Date Details (start date - stop date) Never Smoker NA - NA Sex Assigned At : Social History Observation Description Sex Assigned At Unknown Tobacco use/Smoking: Question Answer Notes Are you a nonsmoker Alcohol Screen (Audit-C) Question Answer Notes Did you have a drink contain ing alcohol in the past year? Yes How often did you have 6 or more drinks on one occasion in the past year? Never (0 point) How many drinks did you have on a typical day when you were drinking in the past year? 1 or 2 drinks (0 point) How often did you have a dri nk containing alcohol in the past year? 4 or more times a week (4 points) Points 4 Interpretation Positive PROBLEMS Problem Type ICD Code Onset Dates Problem Status W/U Status Risk SNOMED Code Notes Problem Lumbar back pain with radiculopathy affecting right lower extremity (M54.16) Active confirmed 619079986 Problem Erectile dysfunction, unspecified erectile dysfunction type (N52.9) Active confirmed 207455332 Problem Primary male hypogonadism (E29.1) Active confirmed 274735364 Problem Obstructive sleep apnea (G47.33) Active confirmed 32921944 Problem Essential hypertension (I10) Active confirmed Problem Primary insomnia (F51.01) Active confirmed 7828377 Problem Mixed hyperlipidemia (E78.2) Active confirmed 840441473 VITAL SIGNS Heart Rate 59 /min 03/08/2025 Oximetry 98 % 03/08/2025 Blood pressure diastolic 78 mm Hg 03/08/2025 Height 66 in 03/08/2025 Blood pressure systolic 116 mm Hg 03/08/2025 Weight 162.4 lbs 03/08/2025 BMI 26.21 kg/m2 03/08/2025 PROCEDURES Procedure Date Ordered Date Performed Result Body Sit e EKG in office 03/26/2024 N/A Encounters Encounter Location Date Provider Diagnosis [address] [id number] 04/12/[address] [id number] 04/13/[address] [id number] 06/01/[address] [id number] 06/22/2024 Caisson Emma [address] [facility], [place] [id number] 06/22/2024 Caisson Emma [address] [facility], [place] [id number] 05/05/2024 Caisson Emma [facility] [address] [facility], [place] [id number] 06/24/2024 Caisson Emma [address] [facility] [id number] 06/24/2024 Caisson Emma Obstructive sleep apnea G47.[address], [place] [id number] 09/01/2024 Caisson Emma [address], [place] [id number] 10/07/2024 Caideannaon Emma Low back pain, unspecified M54.[address] [id number] 10/07/2024 Caisson Emma [address], [place] [id number] 10/07/2024 Caisson Emma [address], [place] [id number] 08/04/2024 Caisson Emma [address], [place] [id number] 01/12/2025 Beatris Gavin [address] [id number] 03/07/2025 Cainena Carter [address] [id number] 03/08/2025 Jocelyn John Lumbar back pain wit h radiculopathy affecting right lower extremity M54.[address] [id number] 03/26/2024 Caideannaon Emma Essential hypertensi on I10 ; Erectile dysfunction, unspecified erectile dysfunction type N52.9 ; Other fatigue R53.83 ; Screening for prostate cancer Z12.5 ; Encounter for vitamin deficiency screening Z13.21 ; Low back pain, unspecified M54.50 ; Snoring R06.83 ; Screening for hyperlipidemia Z13.220 ; Primary insomnia F51.01 and Sinus bradycardia R00.1 [facility] [address] [place] [id number] 03/08/2025 Jocelyn Lopez Primary insomnia F51.01 and Lumbar back pain with radiculopathy affecting right lower extremity M54.[address] [place] [address] 01/12/2025 Cainena Carter [facility] [address] [place] [id number] 01/12/2025 Beatris Gavin Obstructive sleep apnea G47.[address] [id number] 08/24/2024 Caisson Emma [address] [place] [address] 11/25/2024 Caisson Emma [address] [id number] 04/20/2024 Caideannaon Emma [address] [id number] 04/13/2024 Caisson Emma [address] [place] [address] 05/27/2024 Cainena Carter Obstructive sleep apnea G47.33 ; Medicare annual wellness visit, subsequent Z00.00 ; Primary male hypogonadism E29.1 ; Hyperkalemia E87.5 ; Mixed hyperlipidemia E78.2 ; Lumbar radiculopathy M54.16 and Screening for prostate cancer Z12.[address] [id number] 08/03/2024 Cainena Carter Primary male hypogonadism E29.1 and Screening for prostate cancer Z12.5 [facility] [address] [place] [id number] 06/23/2024 Cainena Carter Lumbar radiculopathy M54.16 ASSESSMENTS Encounter Date Diagnosis Assessment Notes Treatment Notes Treatment Clinical Notes 03/26/2024 Essential hypertension (ICD-10 - I10) Blood pressure stable, continue current medications. 03/26/2024 Erectile dysfunction, unspecified erectile dysfunction type (ICD-10 - N52.9) 08/03/2024 Screening for prostate cancer (ICD-10 - Z12.5) 08/03/2024 Primary male hypogonadism (ICD-10 - E29.1) 06/23/2024 Lumbar radiculopathy (ICD-10 - M54.16) 06/24/2024 Obstructive sleep apnea (ICD-10 - G47.33) 10/07/2024 Low back pain, unspecified (ICD-10 - M54.50) 01/12/2025 Obstructive sleep apnea (ICD-10 - G47.33) Patient reports nightly compliance with his CPAP and significant improvement since initiating use. 03/08/2025 Primary insomnia (ICD-10 - F51.01) SCRIPTS database verified; no irregularities noted. Last fill date: 03/26/2024 Xanax- 02/23/25 prescribed by Pita Bowen 03/08/2025 Lumbar back pain with radiculopathy affecting right lower extremity (ICD-10 - M54.16) he will call me back with the name of the [facility] ortho he would like to see for his back 03/08/2025 Lumbar back pain with radiculopathy affecting right lower extremity (ICD-10 - M54.16) 05/27/2024 Medicare annual wellness visit, subsequent (ICD-10 - Z00.00) 05/27/2024 Obstructive sleep apnea (ICD-10 - G47.33) I would recommend taking this prescription to either [employer], [employer], [employer] patient DME companies. 05/27/2024 Primary male hypogonadism (ICD-10 - E29.1) Will start on testosterone gel today. Will recheck labs in 2 months 03/26/2024 Other fatigue (ICD-10 - R53.83) 03/26/2024 Screening for prostate cancer (ICD-10 - Z12.5) 05/27/2024 Hyperkalemia (ICD-10 - E87.5) Repeating potassium today 05/27/2024 Mixed hyperlipidemia (ICD-10 - E78.2) ASCVS risk will not drop with a statin 03/26/2024 Encounter for vitamin deficiency screening (ICD-10 - Z13.21) 03/26/2024 Low back pain, unspecified (ICD-10 - M54.50) he would like to see neurosurg 05/27/2024 Lumbar radiculopathy (ICD-10 - M54.16) Will get an MRI 05/27/2024 Screening for prostate cancer (ICD-10 - Z12.5) 03/26/2024 Snoring (ICD-10 - R06.83) 03/26/2024 Screening for hyperlipidemia (ICD-10 - Z13.220) 03/26/2024 Primary insomnia (ICD-10 - F51.01) 03/26/2024 Sinus bradycardia (ICD-10 - R00.1) 05/27/2024 Other I would recommend regular exercise, DASH diet/healthy heart diet, avoiding smoking and excessive use of alcohol. I would suggest you make half of plate fruits and vegetables, quarter lean protein and quarter whole grains. I would encourage at least five servings of a variety of fruits and vegetables a day and to choose whole grains instead of white grains. I would recommend you limit processed foods, fast foods/convenience foods, saturated fats such as high fat meats and dairy, high fructose corn syrup and foods/beverages high in sugar. I would recommend you getting 30 minutes of exercise daily at least 5 days per week (150 min/wk). I certify that 12 minutes (more than half the time) of the 15 minute guideline was spent discussing CV risk reduction with the patient. 15 minutes spent with depression screening. 03/26/2024 Other 01/12/2025 Other 10/07/2024 Other Script[facility] Website was reviewed today and no questionable activity was found PLAN OF TREATMENT Pending Test Test Name Order Date EKG in office 03/26/2024 MRI LUMBAR SPINE W/O CONTRAST 05/27/2024 Future Test Test Name Order Date CBC WITH PLATELET AND DIFF 08/03/2024 COMPREHENSIVE METABOLIC PANEL (CMP) 07/16 Estradiol (E2) 08/03/2024 PSA, TOTAL (SCREENING), SERUM 08/03/2024 Testosterone, Free, (Direct), Serum 07/16 TESTOSTERONE, TOTAL, SERUM 08/03/2024 Next Appt Details Provider Name:Flo gentile, 06/06/2025 11:30:00 AM, [address] [place] [address], [phone], Insurance Providers Payer Name Payer Address Payer Phone Subscriber Number Group Number Insured Name Patient Relationship to Insured Coverage Start Date Coverage End Date Medicare Part B [address] [place], [place] [id number] [phone] [id number] Sheryl Eliu Self - patient is the insured [place] [address] [place] [id number] Eliu Matson Self - patient is the insured MEDICAL (GENERAL) HISTORY Medical History History ICD Code Hypertension Chronic back pain (laminectomy, discecto my) Central retinal vein occlusion (L eye) guillain-barre DDD history of kidney stones ED Colonoscopy 2022 history of Lyme disease Surgical History Surgery Date(Month/Year) back sugery 09/2018 cholecystectomy bilateral hernia Back surgery 01/2023 Hospitalization History Reason Date(Month/Year) Sepsis 2013
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
--- OUTSIDE RECORDS SUMMARY | 2025-03-14 15:36 | XMS_ITS | Patient Health Record ---
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 Name Role Phone YESSI LAI Primary Care Provider Frederic Bahena Unavailable [phone] Allergies Allergen (clinical drug ingredient) Drug/Non Drug Allergy documented on EMR Reaction Allergy Type Onset Date Status Medicinal quinolone and acting as antibacterial agent (FN) quinolone (uncoded) Unknown Allergy Active Reason For Referral No Information Medications Medication SIG (Take, Route, Frequency, Duration) Notes Start Date End Date Status Losartan Potassium 25 MG TAKE 1 TABLET B Y MOUTH EVERY DAY Oral for 90 Active Aspirin 81 81 MG 1 tablet Orally Once a day for 30 day(s) Active Ventolin HFA prn/ Active Immunizations Vaccine Route Administration Date Status Comme nts Influenza Unknown 12/08/2020 Refused Social History Tobacco Use: Social History Observation Description Date Details (start date - stop date) Never Smoker NA - NA Tobacco Use/Smoking Question Answer Notes Patient is a nonsmoker Alcohol Screen Question Answer Notes Did you have a drink contain ing alcohol in the past year? Yes How often did you have a dri nk containing alcohol in the past year? 4 or more times a week (4 points) How many drinks did you have on a typical day when you were drinking in the past year? 1 or 2 drinks (0 point) How often did you have 6 or more drinks on one occasion in the past year? Never (0 point) Points 4 Interpretation Positive Section Notes: Nonsmoker; no sig alcohol Problems Problem Type SNOMED Code ICD Code Onset Dates Problem Status W/U Status Risk Notes Problem Screening for malignant neoplasm of colon (027303403) Encounter for screening for malignant neoplasm of colon (Z12.11) Active confirmed Problem History of adenomatous polyp of colon (383748791) History of adenomatous polyp of colon (Z86.010) Active confirmed Problem Preprocedural examination (242246967820360 ) Preprocedural examination (Z01.818) Active confirmed Problem Family History of Cancer of Colon (Situation) (541875705) Family history of colon cancer (Z80.0) Active confirmed Problem Gastritis (7792524) Gastritis (K29.70) Active confirmed Problem Gastroesophageal reflux (K21.9) Active confirmed Problem 348553487 Gastroesophageal reflux disease, unspecified whether esophagitis present (K21.9) Active confirmed Plan Of Treatment Future Test Test Name Order Date COLONOSCOPY 12/08/2020 UPPER GI ENDOSCOPY 01/17/2022 Insurance Providers Payer Name Payer Address Payer Phone Subscriber Number Group Number Insured Name Patient Relationship to Insured Coverage Start Date Coverage End Date [employer] [place] [address] [address] [place] [address] [id number] KOBI ORTEGA Self - patient is the insured Medical (General) History Medical History History ICD Code Kidney stones x 2 Hypertension--reported as borderline Small tubular adenoma remove d during his most recent colonoscopy in October of 2014--the colonoscopy pathology report describes normal biopsies from the terminal ileum, ascending colon, and sigmoid colon as well. He reports that he has had 4 other colonoscopies at five-year intervals prior to the most recent one. He thinks he may have had polyps removed on at least one of those as well EGD in 10/2014--I don't have the operative report of that, but pathology specimens from that revealed normal duodenal biopsies and normal gastric biopsies, including no H. pylori Denies [place],DM,CVA,Lung disease,renal dise ase Surgical History Surgery Date(Month/Year) Back surgery L5/S1 discectomy 2018 Cholecystectomy Bilateral inginal hernias
== END 2025-03-14 16:19 | disposition home or self-care (01) ==
LOC: HO.HNS 15:14
PROVIDERS: PCP Internal Medicine; Visit Provider Physician Assistant
DX: M51.26 Other intervertebral disc displacement, lumbar region (principal)
CPT/HCPCS: 99213

== ENCOUNTER → 2025-03-14 15:13 | Outpatient (BNVA) | payer MEDICARE, BC, SELFPAY | PROVIDERS: PCP Internal Medicine; Visit Provider Physician Assistant | DX: M51.26 Other intervertebral disc displacement, lumbar region (principal); M54.50 Low back pain, unspecified; R20.8 Other disturbances of skin sensation; Z79.891 Long term (current) use of opiate analgesic | CPT/HCPCS: 99212 ==

== ENCOUNTER 2025-03-21 07:22 | Outpatient (REF) | payer MEDICARE, BC, SELFPAY ==
--- OUTSIDE RECORDS SUMMARY | 2024-04-20 07:00 | XMS_ITS ---
Author Organization [facility] [employer] [facility] Address [address] [place] [id number] Care Team Providers Care Payroll And Benefits Manager Name Role Phone Nesha Fernandez M.D., Flo Primary Care Provider Unavailable RACHANA LERNER [phone] REASON FOR VISIT (P)/Eval/treat low back pain Encounters Encounter Location Date Provider Diagnosis [facility] [address] [phone] 04/20/2024 RACHANA LERNER Plan Of Treatment No Information Progress Notes * Eliu SAUCEDODOB: [birth year] (74 yo M)Acc No.[id number]:04/20/2024 New Patient Patient: Eliu STOCK Provider: Rudy Capps DO :1950 A ge:73 Y S ex:Male Date:04/20/2024 Address:[address] [place], [place] [id number] Pcp:Flo Jeffries Pp, cp, M.D. Subjective: * Chief Complaints: * 1 . (P)/Eval/treat low back pain. * HPI: H PI:[facility]: PCP? Vibha Fernandez M.D., LAN Rossi. Todays Main Complaint? L umbar - Low back and/or Leg pain/numbness. . Pain Score? _ ____. Pain Mgmt Doctor? _ ____. Workplace Injury? _ ____. Legal? _ ____. Imaging: N o previous or recent imaging . * ROS: G eneral / Constitutional: Patient complains of s leep disturbance. G astrointestinal: Patient denies _ ____. P atient complains of _ ____. M usculoskeletal: Patient complains of b ack pain. N eurologic: Patient complains of l ow back pain, L-spine. ? P sychiatric: Patient complains of _ ____. * Medical History: Objective: * Vitals: * [facility]: GENERAL APPEARANCE: I n no acute distress, well hydrated, well nourished.. HEAD: A traumatic, no rash.. EYES: E xtraocular movement intact (EOMI), sclera non-icteric.. EARS: N ormal, hearing intact to whispered voice.. ORAL CAVITY: N ormal, mucosa moist. NECK/THYROID: N ormal, No cervical lymphadenopathy. SKIN: C lean dry and intact, no ulcerations. ABDOMEN: N ormal, no ascites, no gaurding or rigidity..? EXTREMITIES: N ormal, no clubbing or increased edema.. NEUROLOGIC: * *ENTER PERTINENT POSITIVES. Assessment: Plan: * Treatment: * Billing Information: * Visit Code: * Procedure Codes: * Electronic signature of SHANKAR LERNER DO on 03/21/2025 at 07:24 AM EDT Sign off status: Pending * Provider: Rudy Capps DO Date: 04/20/2024 Generated for Merary fiore/Adriano/Lizbeth on: 0 03/21/2025 07:24 AM EDT History and Physical Notes * HPI (History of Present Illness) Category Sub-Category Detail Notes Category Not es HPI:[facility] PCP? Flo Olmedo M.D., TIMBER Todays Main Complaint? Lumbar - Low back and/or Leg pain/numbness. Workplace Injury? Legal? Pain Score? Pain Mgmt Doctor? Imaging: No previous or recen t imaging Examination Category Sub-Category Detail Notes Category Not es [facility] GENERAL APPEARANCE: In no acute distress, well hydrated, well nourished. HEAD: Atraumatic, no rash. EYES: Extraocular movement intact (EOMI), sclera non-icteric. EARS: Normal, hearing inta ct to whispered voice. ORAL CAVITY: Normal, mucosa moist NECK/THYROID: Normal, No cervical lymphadenopathy SKIN: Clean dry and intact , no ulcerations ABDOMEN: Normal, no ascites, no gaurding or rigidity. EXTREMITIES: Normal, no clubbing or increased edema. NEUROLOGIC: ENTER PERTINENT PO SITIVES
--- NOTE | ~2025-03-21 | XR_ITS ---
EXAMINATION: Lumbar spine 4 views CLINICAL INDICATION: Low back pain. COMPARISON: Lumbar spine 12/23/2022 FINDINGS: There is normal lumbar lordosis. The vertebral heights are normal. There is minimal grade 1 anterolisthesis L5 over S1 with loss of L5-S1, L2-7 elbow-2 disc heights. L5 laminectomy defect. No acute fracture, lytic or sclerotic process seen. XR/XR lumbar spine 4V min IMPRESSION: Grade 1 anterolisthesis L5 over S1, stable. Degenerative disc changes are stable as well. No acute fracture, lytic or sclerotic process seen. Electronically signed by: Woodrow Santacruz MD 03/21/2025 08:06 AM EDT
--- OUTSIDE RECORDS SUMMARY | 2025-03-21 07:24 | XMS_ITS | Patient Health Record ---
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 Name Role Phone YESSI LAI Primary Care Provider Frederic Bahena Unavailable [phone] Allergies Allergen (clinical drug ingredient) Drug/Non Drug [...] Problem Screening for malignant neoplasm of colon (720528140) Encounter for screening for malignant neoplasm of colon (Z12.11) Active confirmed Problem History of adenomatous polyp of colon (836845412) History of adenomatous polyp of colon (Z86.010) Active confirmed Problem Preprocedural examination (075748267142474 ) Preprocedural examination (Z01.818) Active confirmed Problem Family History of Cancer of Colon (Situation) (768746073) Family history of colon cancer (Z80.0) Active confirmed Problem Gastritis (5352939) Gastritis (K29.70) Active confirmed Problem Gastroesophageal reflux (K21.9) Active confirmed Problem 057239708 Gastroesophageal reflux disease, unspecified whether esophagitis present (K21.9) Active confirmed Plan Of Treatment Future Test Test Name Order Date COLONOSCOPY 12/08/2020 UPPER GI ENDOSCOPY 01/17/2022 Insurance Providers Payer Name Payer Address Payer Phone Subscriber Number Group Number Insured Name Patient Relationship to Insured Coverage Start Date Coverage End Date [employer] [place] [address] [address] [place] [address] [id number] KOBI ORTEGA Self - patient is [...] gastric biopsies, including no H. pylori Denies [place],DM,CVA,Lung disease,renal dise ase Surgical History Surgery Date(Month/Year) Back surgery L5/S1 discectomy 2018 Cholecystectomy Bilateral inginal hernias
--- OUTSIDE RECORDS SUMMARY | 2025-03-21 07:24 | XMS_ITS | Data Portability ---
Author Organization Dany Esteves [facility] Address [address] [place] [address] Assessment Encounter Date Assessment Date Assessment LastModified [...] XR, foot - 3 Views 2023 [facility] ([address] [place] [address]), [address] [place] [address], [address], 16:27:28 XR, ankle - 2 views 2023 024 [facility] ([address] [place] [address]), [address] [place], [address], 4 16:27:39 MRI, ankle, w/o contrast - MRI LEFT ANKLE w/o CONTRAST/ CPT 72828 DX: M25.572 Pain in left ankle and joints of left foot AUTHORIZATI ON#: NPR MRI APPOINTMENT : Wednesday, January 10, 2024 AT 7:00AM/ 6:45AM ARRIVAL MRI FOLLOW UP: Tuesday, January 16, 2024 AT 11:20AM/ RACH w/ DR. DANIELS PREVIOUS MRI: YES CLAUSTROPHO BIC: NO SEDATION NEEDED: NO COPY COORDINATOR NEEDED: NO HX OF METAL FRAGMENTS IN [...] YES SCHEDULED BY: JAISON Zheng 2023 024 [facility] - Ob Mri Fax Internal Use Only, [address] [place], [address], 4 09:00:36 Medication Orders None recorded. Patient TargetsNo targets recorded. Patient InstructionsNo instructions recorded. Reason for Referral None Reported. Results Created Date Observation Date Name Description Value Unit Range Abnormal Flag Note LastModifiedBy Organization Detail LastModifiedTime 12/29/19 24 XR, foot No observ ation record ed. [facility] ([address] [place] [address]) [address] [place], [address], 12/29/2023 16:27:28 12/29/19 24 XR, ankle No observ ation record ed. [facility] ([address] [place] [address]) [address] [place], [address], 12/29/2023 16:27:39 01/12/20 24 01/10/2024 MRI, ankle , w/o contr ast MRI ANKLE W/O CONTRA ST LEFT Proced ure: MRI ANKLE W/O CONTRA ST LEFT INDICA TIONS: Left ankle pain Techni que: Multi- planar multi- sequen ce imagin g was perfor med on a 1.5 T MRI at [facility] withou t contra st. Compar maribel: None Findin gs: Tibiot alar joint: Subcor tical bone marrow edema in the wind tunnel engineer ior latera l talar dome. The overly ing cartil age appear s intact . Latera l ligame nts: Inferi or tibiof ibular : Normal Talofi bular: Normal Calcan eofibu lar: Normal Medial ligame nts: Deltoi d: Normal Spring : Normal Retail Property Manager ior tendon s: Retail Property Manager ior tibial is: Normal Flexor digito rum [...] 1. Osteoc hondra l lesion on the wind tunnel engineer olater al aspect of the talar dome. No unstab le fragme nt. 2. No ligame nt injury . 3. The Achill es tendon is intact . Electr onical ly Signed By: ESSENCE Rivera (01/11 09:00 AM) [email or web address] [employer] [address], [place], [address], 01/12/2024 09:09:19 01/12/20 24 01/12/2024 MRI, ankle , w/o contr ast No observ ation record ed. [address] - Ob Mri Fax Internal Use Only [address] [place], [address], 01/12/2024 10:10:42 Result Notes Documentation Provider Name and Address Organization Details Recorded Time Mri, Ankle, W/o Contrast : MRI ANKLE W/O CONTRAST LEFT Procedure: MRI ANKLE W/O CONTRAST LEFT INDICATIONS: Left ankle pain Technique: Multi-planar multi-sequence imaging was performed on a 1.5 T MRI at [facility] without contrast. Comparison: None Findings: Tibiotalar joint: [...] ESSENCE MARIE (01/12/2024 09:00 AM) Mariam ramirez [place] - [facility], LElenaLElenaCElena 01/12/2024 09:09:19 Problems Name Problem SNOMED Code Status Onset Date Resolution Date Notes Provider Name and Address Organization Details Recorded Time Osteoarthritis of ankle 755910547 Active 2023 Cristobal Daniels MD [address] [place] [address],[place]: I.T. PAST DUE ACCOUNTS [place], [address], [facility] 4 16:27:50 Achilles tendinitis 50872243 Active 2023 Cristobal Daniels MD [address] [place] [address] [place]: Paul PAST DUE ACCOUNTS CLERK [place], [address], [facility] 4 16:28:09 Problem Notes None recorded. [...] Updated DateTime 12/29/2023 170.18 cm 25.4 kg/m2 51290.96 g Rosalina Cayden [facility] 12/29/2023 13:26:50 Date Recorded Body height Body mass index (BMI) Body weight Heart rate Systolic And Diastolic Provider Name and Address Organization Details Last Updated DateTime 01/16/2024 170.18 cm 25.2 kg/m2 38167.37 g 62 /min 112/77 mm[Hg] Kim Cavanaugh [facility] 01/16/2024 11:17:16 Social History Question Answer Notes LastModified by Organizat ion Details LastModified Time Tobacco Smoking Status Never Smoker Rosalina ramirez [facility] 12/29/2023 13:26:59 Do You Have An Advance Directive? Yes [email or web address] Information not available 12/29/2023 How Much Tobacco Do You Chew? None [email or web address] Information not available 01/16/2024 Hand Dominance Right [email or web address] Informatio n not available 12/29/2023 Do You Have A Medical Power Of Chief Ophthalmic Technician? Yes [email or web address] Information not available 12/29/2023 What Was The Date Of Your Most Recent Tobacco Screening? 01/16/2024 [email or web address] Information not available 01/16/2024 What Is Your Relationship Status? [email or web address] Information not available 01/16/2024 Has Tobacco Cessation Counseling Been Provided? No [email or web address] Information not available 01/16/2024 Sex: Unknown Functional Status Question Answer Note LastModified by Organizat ion Details LastModified Time Are you currently employed? 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 Family History Relationship Description Onset Age of this Age Resolved Age Notes LastModified by Organization Details LastModified Time Father No current problems or disability [email or web address] Not available 11:13:31 Mother No current problems or disability [email or web address] Not available 11:13:31 Medical History No medical history recorded. Past Encounters Encounter ID Performer Location Encounter Start Date Encounter Closed Date Diagnosis/Indication Diagnosis SNOMED-CT Code Diagnosis ICD10 Code Diagnosis Note [id number] Cristobal Daniels MD [facility] [address] [facility] 3 [place] [address] 12/29/2023 13:10:36 12/29/2023 14:07:21 Joint pain in ankle and foot 645541564 M25.572 Osteoarthr itis of ankle 575223992 M19.072 Achilles tendinitis 1165 4001 M76.62 [id number] Cristobal Daniels MD [facility] [address] [address] 01/16/2024 11:11:33 01/16/2024 11:39:31 Achilles tendinitis 44458763 M76.62 Osteoarthr itis of ankle 692446557 M19.072 Health Concerns Section Related Observation LastModified by Organization Detai ls LastModified Time None Recorded Concern Status LastModified by Organization Details LastModified Time None Recorded Advance Directives Directive Y: Payers Insurance Date Sequence Insurance Name Policy Number Policy Domínguez Covered Member ID Domínguez Member ID Guarantor Name 01/16/2024 1 [place]: LIZZIE Saucedo [id number] Eliu Saucedo 01/16/2024 2 [facility] ([place]PP[place]) [id number] Eliu Saucedo [id number] Eliu Saucedo Notes Date Note Type Note Provider Name and Address Organization Details Recorded Time 12/29/2023 text/html [id number] d bypatient.Locati on:left Quality:aching; sharp; deep; worsening [...] obtained in clinic today. Cristobal Daniels MD [address] [place] [address],ATTN: I.T. PAST DUE ACCOUNTS [place], [address], [facility], .L.. 12/29/2023 16:28:29 01/16/2024 text/html [id number] d bypatient.Locati on:left Quality:aching; sharp; deep; worsening [...] some. No new injuries. Cristobal Daniels MD [address] [place] [address],ATTN: I.T. PAST DUE ACCOUNTS [place], [address], [facility], Dany 01/16/2024 11:39:09
--- OUTSIDE RECORDS SUMMARY | 2025-03-21 07:24 | XMS_ITS | Patient Health Record ---
Author Organization [facility] Address [address] [place] [address] Care Team Providers Care Oil Well Fishing Tool Operator Name Role Phone Flo Carter Primary Care Provider Jocelyn Lopez Unavailable [phone] Beatris Gavin Unavailable [phone] ALLERGIES Allergen (clinical drug ingredient) Drug/Non Drug [...] Reviewed date:03/29/2024 03:12:36 PM Interpretation: Performing Lab:, [facility] Notes/Report: FOL. 10.9 2.8-21.0 ng/mL FSH [...] Reviewed date:03/29/2024 03:12:36 PM Interpretation: Performing Lab:, [id number] Notes/Report: Testing performed at: [01] [address], [address], , Fruit Bar Maker: Allison Powers MD Sex Horm Binding Glob, Serum 85.8 19.3-76.4 nm ol/L T3 FREE, SERUM Reviewed date:03/29/2024 03:12:36 PM Interpretation: Performing Lab:, PPCP Notes/Report: FT3. 4.3 2.8-5.3 pg/mL T4 FREE, DIRECT, SERUM Reviewed date:03/29/2024 03:12:36 PM Interpretation: Performing Lab:, PPCP Notes/Report: FT4. 1.23 0.78-2.19 ng/dL Testosterone, Free, (Direct) , Serum Reviewed date:03/29/2024 03:12:36 PM Interpretation: Performing Lab:, [id number] Notes/Report: Testing performed at: [01] [address], [address], , Fruit Bar Maker: Allison Powers MD Free Testosterone(Direct) 6.1 6.6-18.1 pg/mL TESTOSTERONE, TOTAL, SERUM Reviewed date:03/29/2024 03:12:36 PM Interpretation: Performing Lab:, PPCP Notes/Report: Testo 453.00 71.80-623.00 ng/dL TSH, (THYROID STIMULATING HO RMONE), SERUM Reviewed date:03/29/2024 03:12:36 PM Interpretation: Performing Lab:, PPCP Notes/Report: TSH. 2.660 0.465-4.680 uIU/mL REASON FOR REFERRAL Reason eval and treat Diagnosis 1 Low back pain, unspe cified (M54.50) Referral Organization [facility] Referring Provider First Name Flo Referring Provider Last Name Emma Referring Provider Speciality Primary Ca re Referred Provider Andres Ruiz Referred Provider Specialty Neurosurgery Procedure 1 Physician Preference (PPREF) General Notes Annalise Brunner 2023 1:45:09 PM > Please send back appointment information to our office once you schedule an appointment with patient you can send fax to [phone] or email the appointment date/time to [email or web address], Thank you., Annalise Brunner 03/29/2024 1:47:33 PM > Faxed referral to Dr. Card @ [facility] (no longer [facility]) phone [phone] fax [phone], [address], [place], [address]. This office will contact patient to schedule appointment. Clinical Notes Annalise Brunner 2023 1:47:20 PM > sent p2p; no imaging/hipaa to [facility] to send p2p Referral Priority Routine Reason eval and treat Diagnosis 1 Snoring (R06.83) Referring Provider First Name Flo Referring Provider Last Name Emma Referring Provider Speciality Primary Pr re Referred Provider [facility] Referred Provider Specialty Sleep Lab Procedure 1 Physician Preference (PPREF) General Notes Zhanna Cid 11:09:54 AM > Please send back appointment information to our office once you schedule an appointment with patient by fax at [phone] or you can email the appointment date/time to [email or web address], Thank you Clinical Notes Zhanna Cid 11:10:46 AM > [facility]- Ph: [phone] Fx: [phone] A: [address] [place] [address] ~~faxed referral/ office will call to schedule pt Referral Priority Routine Referral Appointment Date 04/14/2024 Reason MRI LUMBAR SPINE WO CONTRAST - Travelin [employer] to schedule. Letter sent 06/04 Diagnosis 1 Lumbar radiculopathy (M54.16) Referral Organization [facility] Referring Provider First Name Flo Referring Provider Last Name Emma Referring Provider Speciality Primary Ca re Referred Provider [facility] Referred Provider Specialty Diagnostic R adiology Procedure 1 MRI LUMBAR SPINE WOU T CONTRAS (74086) General Notes Justin Hoffman 0 06/04/2024 12:25:32 PM >Per Daniella, pt. is eligible w/NEC. Eugenia HUFF Natasha 06/15/2024 01:18:28 PM >-Not claustrophobic, -approx weight 160lbs, -no lift needed, -No metals, -No CGM Referral Priority Routine Referral Appointment Date 06/23/2024 Reason eval / treat Diagnosis 1 Lumbar radiculopathy (M54.16) Referral Organization [facility] Referring Provider First Name Flo Referring Provider Last Name Emma Referring Provider Speciality Primary Ca re Referred Provider DARLENE ALLISON Referred Provider Specialty Pain Managem ent General Notes Sayra Bhakta 06/29/2024 05:18:33 PM >Faxed referral to [facility] phone [phone] fax [phone], [address] [address] [address] [place] [address]. This office will call patient directly to schedule an appointment. Clinical Notes Sayra hBakta 06/29/2024 05:18:50 PM >Sent referral to Dr [...] LORazepam 1 MG 1 tablet Oral at [facility] for 30 days 03/08/2025 [...] W/U Status Risk SNOMED Code Notes Problem Mixed hyperlipidemia (E78.2) Active confirmed 396102983 Problem Primary insomnia (F51.01) Active confirmed 5551865 Problem Essential hypertension (I10) Active confirmed Essential hypertension (19509111) Problem Obstructive sleep apnea (G47.33) Active confirmed 85172296 Problem Primary male hypogonadism (E29.1) Active confirmed 734142071 Problem Erectile dysfunction, unspecified erectile dysfunction type (N52.9) Active confirmed 284070600 Problem Lumbar back pain with radiculopathy affecting right lower extremity (M54.16) Active confirmed 526026993 VITAL SIGNS Heart Rate 59 /min 03/08/2025 Oximetry 98 % 03/08/2025 Blood pressure diastolic 78 mm Hg 03/08/2025 Height 66 in 03/08/2025 Blood pressure systolic 116 mm Hg 03/08/2025 Weight 162.4 lbs 03/08/2025 BMI 26.21 kg/m2 03/08/2025 PROCEDURES Procedure Date Ordered Date Performed Result Body Sit e EKG in office 03/26/2024 N/A Encounters Encounter Location Date Provider Diagnosis [address] [id number] 04/12/[address] [id number] 04/13/[address] [id number] 06/01/[address] [id number] 06/22/2024 [place] [address] [facility] [place] [id number] 06/22/2024 Caisson Emma [address], [place] [id number] 05/05/2024 [place] [address] [facility] [place] [id number] 06/24/2024 Caisson Emma [address], [place] [id number] 06/24/2024 Caisson Emma Obstructive sleep apnea G47.[address], [place] [id number] 09/01/2024 Caisson Emma [address] [id number] 10/07/2024 Caisson Emma Low back pain, unspecified M54.[address] [id number] 10/07/2024 Caisson Emma [address] [id number] 10/07/2024 Caisson Emma [address] [id number] 08/04/2024 Caisson Emma [address] [id number] 01/12/2025 Hoyletonkaroline Gavin [address] [id number] 03/07/2025 Caisson Emma [address] [id number] 03/08/2025 Jocelyn John Lumbar back pain wit h radiculopathy affecting right lower extremity M54.[address] [id number] 03/26/2024 Caisson Emma Essential hypertensi on I10 ; Erectile dysfunction, unspecified erectile dysfunction type N52.9 ; Other fatigue R53.83 ; Screening for prostate cancer Z12.5 ; Encounter for vitamin deficiency screening Z13.21 ; Low back pain, unspecified M54.50 ; Snoring R06.83 ; Screening for hyperlipidemia Z13.220 ; Primary insomnia F51.01 and Sinus bradycardia R00.[address] [id number] 03/08/2025 Jocelyn Lopez Primary insomnia F51.01 and Lumbar back pain with radiculopathy affecting right lower extremity M54.[address] [place] [place] [address] 01/12/2025 Flo Carter [address] [id number] 01/12/2025 Beatris Gavin Obstructive sleep apnea G47.[address] [id number] 08/24/2024 Cainena Carter [address] [place] [place] [address] 11/25/2024 Cainena Carter [address] [id number] 04/20/2024 Cainena Carter [address] [id number] 04/13/2024 Cainena Carter [address] [place] [place] [address] 05/27/2024 Flo Carter Obstructive sleep apnea G47.33 ; Medicare annual wellness visit, subsequent Z00.00 ; Primary male hypogonadism E29.1 ; Hyperkalemia E87.5 ; Mixed hyperlipidemia E78.2 ; Lumbar radiculopathy M54.16 and Screening for prostate cancer Z12.[address] [id number] 08/03/2024 Flo Carter Primary male hypogonadism E29.1 and Screening for prostate cancer Z12.5 [facility] [place] [address] 06/23/2024 Flo Carter Lumbar radiculopathy M54.16 ASSESSMENTS Encounter Date Diagnosis Assessment Notes Treatment Notes Treatment Clinical Notes Section Notes 03/26/2024 Essential hypertension (ICD-10 - I10) [...] me back with the name of the [facility] ortho he would like to see for his back 03/08/2025 Lumbar back pain with radiculopathy affecting right lower extremity (ICD-10 - M54.16) 05/27/2024 Medicare annual wellness visit, subsequent (ICD-10 - Z00.00) 05/27/2024 Obstructive sleep apnea (ICD-10 - G47.33) I would recommend taking this prescription to either [facility], [employer], [employer] patient DME companies. 05/27/2024 Primary male hypogonadism [...] would recommend you limit processed foods, fast foods/convenien ce foods, saturated fats such as high fat [...] 03/26/2024 Other 01/12/2025 Other 10/07/2024 Other Scripts [facility] Website was reviewed today and no [...] Details Provider Name:Flo gentile, 06/06/2025 11:30:00 AM, [address] [place] [address], [phone], Insurance Providers Payer Name Payer Address Payer Phone Subscriber Number Group Number Insured Name Patient Relationship to Insured Coverage Start Date Coverage End Date Medicare Part B [address] [place], [place] [id number] [phone] [id number] Eliu Matson Self - patient is the insured [facility] [address] [place] [id number] Eliu Matson Self - patient is the insured MEDICAL (GENERAL) HISTORY Medical History History ICD Code Hypertension Chronic back pain (laminectomy, discecto my) Central retinal vein occlusion (L eye) guillain-barre DDD history of kidney stones ED Colonoscopy 2022 history of Lyme disease Surgical History Surgery Date(Month/Year) back sugery 09/2018 cholecystectomy bilateral hernia Back surgery 01/2023 Hospitalization History Reason Date(Month/Year) Sepsis 2012
== END 2025-03-21 07:23 | disposition home or self-care (01) ==
LOC: HO.XRAY 07:22
PROVIDERS: Visit Provider Physician Assistant
DX: M51.26 Other intervertebral disc displacement, lumbar region (principal)
CPT/HCPCS: 72110

== ENCOUNTER → 2025-03-21 07:23 | Outpatient (BNV) | payer MEDICARE, BC, SELFPAY | PROVIDERS: Visit Provider Radiology Diagnostic Radiology | DX: M61.362 Calcification and ossification of muscles associated with burns, left lower leg (principal) | CPT/HCPCS: 72110 ==